=== PATIENT | male | born 1940 | race Caucasian/White ===

== ENCOUNTER → 2020-03-25 | Outpatient (CLI) | payer MEDICARE, MEDICAID ==
[~2020-03-25] MED LIST: AMLO10TA82 PO; ASP325T PO; CEPH500C PO; LIPA1CAP20 PO; LISI40TA PO; OMEG-12 PO; OMEP20TA2 PO; RT-COMBINH IH; VICODIN PO
--- NOTE | 2020-03-25 15:05 | Diagnostic Imaging Report ---
INDICATION: Foot deformities. TIME OF EXAM: 02:39 p.m. EXAMINATION: Multiple views of bilateral feet were obtained. FINDINGS: Metatarsals and phalanges are intact. There is a bunion deformity on the left with first MTP joint degenerative changes. No fractures are seen. Midfoot and hindfoot are unremarkable bilaterally apart from small plantar calcaneal spurs. IMPRESSION: Chronic changes. No acute bony abnormality is detected. Dictated by: Dictated on workstation # [id number]
== END ==
LOC: RAD FS 14:25
PROVIDERS: ATTEND Family Medicine
DX: M21.962 Unspecified acquired deformity of left lower leg (principal)

== ENCOUNTER 2020-11-23 12:24 | Inpatient (IN) | payer MEDICARE, MEDICAID ==
[~2020-11-23] VITALS: Ht 167 cm; Wt 69.2 kg
--- NOTE | 2020-11-23 12:25 | ED General ---
General Stated Complaint: BRADYCARDIA History of Present Illness Date Seen by Provider: Nov 23, 2020 Time Seen by Provider: 12:25 Initial Comments 79-year-old male presents with not feeling good for couple days. Patient just states that "you know somebody not right. EMS was called. Upon arrival EMS reports that his heart rate was in 30s. They did give him some atropine 1 mg that temporarily increased heart rate. Upon arrival his been wearing off and his heart rate is now back in the 30s. Patient is alert orientated just has generalized not feeling well. He denies any cough fever or chills or other systemic complaints. Patient is unsure what his medications are. I review of records from 2014 showed amlodipine and lisinopril. Patient did have the Covid vaccine. No other systemic complaints. Allergies and Home Medications Allergies Coded Allergies: No Known Drug Allergies (Unverified , 12/02/10) Home Medications Amlodipine Besylate 10 Mg Tablet, 2 EACH PO DAILY, (Reported) Aspirin 325 Mg Tab, 325 MG PO DAILY, (Reported) Cephalexin Monohydrate 500 Mg Capsule, 1 CAP PO TID Prescribed by: GISEL TRONCOSO on 09/27/141416 Ipratropium/Albuterol Sulfate 14.7 Gm Aer.w.adap, 2 PUFF IH NEEDED, (Reported) Lipase/Protease/Amylase 1 Each Capsule.dr, 1 EACH PO AC, (Reported) Lisinopril 40 Mg Tablet, 1 EACH PO DAILY, (Reported) [place]-3/Dha/Epa/Fish Oil 1 Each Capsule.dr, 1 EACH PO DAILY, (Reported) Omeprazole 20 Mg Tablet.dr, 20 MG PO DAILY, (Reported) [Vicodin 5/325 MG TAB] TAB, 1-2 TAB PO Q4H PRN for PAIN Prescribed by: GISEL TRONCOSO on 09/27/14 1417 Patient Home Medication List Home Medication List Reviewed: Yes Review of Systems Review of Systems Constitutional: No chills; malaise, weakness EENTM: no symptoms reported Respiratory: no symptoms reported Cardiovascular: no symptoms reported Gastrointestinal: no symptoms reported Musculoskeletal: no symptoms reported Skin: no symptoms reported Psychiatric/Neurological: No Symptoms Reported Hematologic/Lymphatic: No Symptoms Reported Physical Exam Vital Signs Vital Signs - First Documented 11/23/20 12:24 Temp 36.8 Pulse 42 Resp 18 B/P (MAP) 184/54 (97) Pulse Ox 98 O2 Delivery Room Air Capillary Refill : Height, Weight, BMI Height: '" Weight: lbs. oz. kg; BMI Method: General Appearance: No Apparent Distress, WD/WN Respiratory: Chest Non Tender, Lungs Clear Cardiovascular: No Edema, Bradycardia Gastrointestinal: Non Tender, Soft Extremity: Normal Capillary Refill, Normal Inspection, Normal Range of Motion Neurologic/Psychiatric: Alert, Oriented x3, No Motor/Sensory Deficits, Normal Mood/Affect, skirt clipper II-XII Norm as Tested Skin: Normal Color, Warm/Dry Progress/Results/Core Measures Suspected Sepsis SIRS Temperature: Pulse: Respiratory Rate: Laboratory Tests 11/23/20 12:30: White Blood Count 8.5 Blood Pressure / Mean: Laboratory Tests 11/23/20 12:30: Creatinine 1.02, Platelet Count 220, Total Bilirubin 0.5 Results/Orders Lab Results Laboratory Tests Test 11/23/20 12:30 Range/Units White Blood Count 8.5 4.3-11.0 10^3/uL Red Blood Count 4.35 4.35-5.85 10^6/uL Hemoglobin 12.6 L 13.3-17.7 G/DL Hematocrit 40 40-54 % Mean Corpuscular Volume 92 80-99 FL Mean Corpuscular Hemoglobin 29 25-34 PG Mean Corpuscular Hemoglobin Concent 32 32-36 G/DL Red Cell Distribution Width 15.1 H 10.0-14.5 % Platelet Count 220 130-400 10^3/uL Mean Platelet Volume 9.7 7.4-10.4 FL Immature Granulocyte % (Auto) 1 % Neutrophils (%) (Auto) 75 42-75 % Lymphocytes (%) (Auto) 17 12-44 % Monocytes (%) (Auto) 6 0-12 % Eosinophils (%) (Auto) 0 0-10 % Basophils (%) (Auto) 0 0-10 % Neutrophils # (Auto) 6.4 1.8-7.8 X 10^3 Lymphocytes # (Auto) 1.5 1.0-4.0 X 10^3 Monocytes # (Auto) 0.5 0.0-1.0 X 10^3 Eosinophils # (Auto) 0.0 0.0-0.3 10^3/uL Basophils # (Auto) 0.0 0.0-0.1 10^3/uL Immature Granulocyte # (Auto) 0.1 0.0-0.1 10^3/uL Sodium Level 139 135-145 MMOL/L Potassium Level 4.9 3.6-5.0 MMOL/L Chloride Level 106 98-107 MMOL/L Carbon Dioxide Level 21 21-32 MMOL/L Anion Gap 12 5-14 MMOL/L Blood Urea Nitrogen 38 H 7-18 MG/DL Creatinine 1.02 0.60-1.30 MG/DL Estimat Glomerular Filtration Rate > 60 BUN/Creatinine Ratio 37 Glucose Level 102 70-105 MG/DL Calcium Level 8.9 8.5-10.1 MG/DL Corrected Calcium 9.1 8.5-10.1 MG/DL Magnesium Level 1.8 1.6-2.4 MG/DL Total Bilirubin 0.5 0.1-1.0 MG/DL Aspartate Amino Transf (AST/SGOT) 33 5-34 U/L Alanine Aminotransferase (ALT/SGPT) 29 0-55 U/L Alkaline Phosphatase 86 40-136 U/L Troponin I < 0.30 <0.30 NG/ML Total Protein 7.0 6.4-8.2 GM/DL Albumin 3.8 3.2-4.5 GM/DL My Orders Orders - CRAIG,DEEP L DO Cbc With Automated Diff (11/23/20 12:26) Comprehensive Metabolic Panel (11/23/20 12:26) Magnesium (11/23/20 12:26) Protime With Inr (11/23/20 12:26) Partial Thromboplastin Time (11/23/20 12:26) Troponin I Fs (11/23/20 12:26) Accucheck Stat ONCE (11/23/20 12:27) Ed Iv/Invasive Line Start (11/23/20 12:27) Ekg Tracing (11/23/20 12:27) Monitor-Rhythm Ecg Trace Only (11/23/20 12:27) Chest 1 View Ap/Pa Only (11/23/20 12:27) Ns Iv 1000 Ml (Sodium Chloride 0.9%) (11/23/20 12:45) Vital Signs/I&O 11/23/20 12:24 Temp 36.8 Pulse 42 Resp 18 B/P (MAP) 184/54 (97) Pulse Ox 98 O2 Delivery Room Air Capillary Refill : Progress Note : Progress Note Patient with third-degree heart block. We will transfer to [facility] for definitive care. Discussed with Dr. Cristobal and Dr. Sharma. We will give patient some gentle IV hydration. Patient will be transferred to the ICU for observation. Patient was stable but guarded upon transfer ECG Initial ECG Impression Date: Nov 23, 2020 Initial ECG Impression Time: 12:25 Initial ECG Rate: 36 Initial ECG Impression: 3rd Degree AV Block Comment Bradycardia with third-degree AV block. Diagnostic Imaging Diagonstic Imaging: Xray Plain Films/CT/US/NM/MRI: chest Comments Date of Exam:11/23/20 CHEST 1 VIEW AP/PA ONLY INDICATION: Bradycardia. TECHNIQUE: Single view chest 12:31 PM. CORRELATION STUDY: 12/02/2010 FINDINGS: Cardiac enlargement. Probable coronary artery calcification and/or coronary artery stents. Calcification aortic arch. Vasculature slightly prominent. Lung horne demonstrate mildly prominent interstitial markings likely areas of fibrosis particularly in the upper lobes. No consolidating infiltrate. May be trace pleural effusion versus pleural thickening. IMPRESSION: 1. Cardiac enlargement with mild prominent vasculature but without overt failure. 2. Likely chronic change about the lung parenchyma without areas of fibrosis particularly bilateral upper lobes. May be trace pleural effusion versus pleural thickening. Reviewed: Reviewed by Me, Reviewed/Discussed Departure Impression Primary Impression: Third degree atrioventricular block Disposition: 30 STILL A PATIENT Condition: Stable Admissions Decision to Admit Reason: Admit from ER (General) Decision to Admit/Date: Nov 23, 2020 Time/Decision to Admit Time: 12:40 DEEP CRAIG DO Nov 23, 2020 12:25
[2020-11-23 12:39] LABS: HEMATOCRIT 40 % (40-54); HEMOGLOBIN 12.6 G/DL (13.3-17.7); MEAN CORPUSCULAR VOLUME 92 FL (80-99); WHITE BLOOD COUNT 8.5 10^3/uL (4.3-11.0)
[2020-11-23 12:40] LABS: BASOPHILS % (AUTO) 0 % (0-10); EOSINOPHILS % (AUTO) 0 % (0-10); LYMPHOCYTES # (AUTO) 1.5 X 10^3 (1.0-4.0); LYMPHOCYTES % (AUTO) 17 % (12-44); MEAN CORPUSCULAR HEMOGLOBIN 29 PG (25-34); MEAN CORPUSCULAR HGB CONC 32 G/DL (32-36); MEAN PLATELET VOLUME 9.7 FL (7.4-10.4); MONOCYTES # (AUTO) 0.5 X 10^3 (0.0-1.0); MONOCYTES % (AUTO) 6 % (0-12); NEUTROPHILS # (AUTO) 6.4 X 10^3 (1.8-7.8); NEUTROPHILS % (AUTO) 75 % (42-75); PLATELET COUNT 220 10^3/uL (130-400)
[2020-11-23] MEDS ORDERED: NS IV 1000 ML 1,000 ML IV SCH (12:45)
[2020-11-23 12:59] LABS: ALANINE AMINOTRANSFERASE 29 U/L (0-55); ALBUMIN 3.8 GM/DL (3.2-4.5); ALKALINE PHOSPHATASE 86 U/L (40-136); BILIRUBIN,TOTAL 0.5 MG/DL (0.1-1.0); BUN/CREATININE RATIO 37; CALCIUM 8.9 MG/DL (8.5-10.1); CARBON DIOXIDE 21 MMOL/L (21-32); CHLORIDE 106 MMOL/L (98-107); CREATININE SERUM 1.02 MG/DL (0.60-1.30); GFR ESTIMATED > 60; GLUCOSE 102 MG/DL (70-105); MAGNESIUM 1.8 MG/DL (1.6-2.4); POTASSIUM 4.9 MMOL/L (3.6-5.0); SODIUM 139 MMOL/L (135-145)
--- NOTE | 2020-11-23 13:04 | Diagnostic Imaging Report ---
INDICATION: Bradycardia. TECHNIQUE: Single view chest 12:31 PM. CORRELATION STUDY: 12/02/2010 FINDINGS: Cardiac enlargement. Probable coronary artery calcification and/or coronary artery stents. Calcification aortic arch. Vasculature slightly prominent. Lung horne demonstrate mildly prominent interstitial markings likely areas of fibrosis particularly in the upper lobes. No consolidating infiltrate. May be trace pleural effusion versus pleural thickening. IMPRESSION: 1. Cardiac enlargement with mild prominent vasculature but without overt failure. 2. Likely chronic change about the lung parenchyma without areas of fibrosis particularly bilateral upper lobes. May be trace pleural effusion versus pleural thickening. Dictated by: Dictated on workstation # [id number]
[2020-11-23 14:23] LABS: PROTHROMBIN TIME PATIENT 13.9 SEC (12.2-14.7)
--- NOTE | 2020-11-23 14:23 | Tele-ICU Consult ---
History of Present Illness History of Present Illness Date Seen by Provider: Nov 23, 2020 Time Seen by Provider: 14:19 Date of Admission 79 y/o male presents to the ED just not feeling right. EKG shows HR of 30. Given atropine with temporary improvement EKG looks to be 3rd heart block BP 15/69 Labs: wbc: 8.5 hgb: 12.6 K: 4.9 BUN 38 creat: 1.02 IMP 3rd degree heart block Cardiology on consult Allergies and Home Medications Allergies Coded Allergies: No Known Drug Allergies (Unverified , 12/02/10) Home Medications Amlodipine Besylate 10 Mg Tablet, 2 EACH PO DAILY, (Reported) Aspirin 325 Mg Tab, 325 MG PO DAILY, (Reported) Cephalexin Monohydrate 500 Mg Capsule, 1 CAP PO TID Prescribed by: GISEL TRONCOSO on 09/27/141416 Ipratropium/Albuterol Sulfate 14.7 Gm Aer.w.adap, 2 PUFF IH NEEDED, (Reported) Lipase/Protease/Amylase 1 Each Capsule.dr, 1 EACH PO AC, (Reported) Lisinopril 40 Mg Tablet, 1 EACH PO DAILY, (Reported) [place]-3/Dha/Epa/Fish Oil 1 Each Capsule.dr, 1 EACH PO DAILY, (Reported) Omeprazole 20 Mg Tablet.dr, 20 MG PO DAILY, (Reported) [Vicodin 5/325 MG TAB] TAB, 1-2 TAB PO Q4H PRN for PAIN Prescribed by: GISEL TRONCOSO on 09/27/141416 Past Medical/Social/Family Hx Patient Social History Tobacco Use?: Yes Tobacco type used: Cigarettes Smoking Status: Current Someday Smoker Substance use?: No Alcohol Use?: No Pt stated abuse/neglect: No Immunizations Up To Date First/Initial COVID19 Vaccinat: August 2020 Second COVID19 Vaccination Iain: September 2020 Current Status Advance Directives: No Advance Directive Location: Home Primary Language: Romansh Preferred Spoken Language: Romansh Sensory deficits: Hearing impairment Implanted or Applied Medical D: None Review of Systems Constitutional: No no symptoms reported, No see HPI, No chills, No diaphoresis, No dizziness, No fever; malaise; No weakness, No weight gain, No weight loss, No other EENTM: No see HPI, No no symptoms reported, No ear discharge, No hearing loss, No ear pain, No blurred vision, No double vision, No eye pain, No tearing, No vision loss, No dental problems, No hoarseness, No mouth pain, No mouth swelling, No epistaxis, No nose congestion, No nose pain, No throat pain, No throat swelling, No other Respiratory: No no symptoms reported, No see HPI, No cough, No dyspnea on exertion, No hemoptysis, No orthopnea, No phlegm, No short of breath, No stridor, No wheezing, No other Cardiovascular: No no symptoms reported, No see HPI, No chest pain, No edema, No Hx of Intervention, No palpitations, No syncope, No vascular heart diseas, No other Sepsis Event Evaluation Height, Weight, BMI Height: '" Weight: lbs. oz. kg; 20.36 BMI Method: Exam Exam Patient acknowledged, consented, and participated in this virtual visit which was conducted using real time audio/video Vital Signs Date Time Temp Pulse Resp B/P (MAP) Pulse Ox O2 Delivery O2 Flow Rate FiO2 11/23/20 13:57 36.8 30 18 124/93 (103) 94 Room Air 11/23/20 12:24 36.8 42 18 184/54 (97) 98 Room Air Height & Weight Height: '" Weight: lbs. oz. kg; 20.36 BMI Method: General Appearance: No Apparent Distress, WD/WN Respiratory: Chest Non Tender, Lungs Clear Cardiovascular: No Edema, Bradycardia Capillary Refill: Less Than 3 Seconds Extremity: Normal Capillary Refill, Normal Inspection, Normal Range of Motion Neurologic/Psychiatric: Alert, Oriented x3, No Motor/Sensory Deficits, Normal Mood/Affect, shingle grader II-XII Norm as Tested Skin: Normal Color, Warm/Dry Results Lab Laboratory Tests 11/23/20 12:30 Assessment/Plan Assessment/Plan 3rd degree heart block without syncope or hypotension PLAN: admit to ICU cardiology on consult MAGALY ESCOBAR MD Nov 23, 2020 14:23
[2020-11-23] MEDS ORDERED: LOPERAMIDE 2 MG (IMODIUM) TABLET PO PRN (15:00)
[2020-11-23] MEDS ORDERED: CATHETER FLUSH 10 ML SYR IV PRN (15:00)
[2020-11-23] MEDS ORDERED: MELATONIN 3 MG TABLET PO PRN (15:00)
[2020-11-23] MEDS ORDERED: diphenhydrAMINE 25 MG TAB (BENADRYL) PO PRN (15:00)
[2020-11-23] MEDS ORDERED: DOCUSATE SODIUM 100 MG (COLACE) CAP PO PRN (15:00)
[2020-11-23] MEDS ORDERED: CALCIUM CARBONATE 500 MG (TUMS) TAB.CHEW PO PRN (15:00)
[2020-11-23] MEDS ORDERED: ACETAMINOPHEN 500 MG TAB (TYLENOL) PO PRN (15:00)
[2020-11-23] MEDS: NS IV 1000 ML 1,000 ML IV SCH (15:10)
[2020-11-23] MEDS ORDERED: ACETAMINOPHEN 325 MG TABLET PO PRN (15:15)
[2020-11-23] MEDS: HYDROcodone/APAP 5 MG/325 MG (LORTAB) TAB PO PRN ×3 (16:39→23:55)
--- NOTE | 2020-11-23 18:49 | Consultation-Cardiology ---
HPI-Cardiology Cardiology Consultation Date of Consultation 11/23/20 Date of Admission Time Seen by Provider: 18:46 Indication: Symptomatic bradycardia HPI 79 years old gentleman with history of coronary artery disease, reporting history of 3 stents in the past, hypertension, hyperlipidemia and tobaccoism. Has been feeling tired, "not feeling well "for the past 2 weeks. No impr ovement, came into the emergency room for evaluation he was noted to be bradycardic. He denied any syncope, no chest pain, admit having chronic shortness of breath. No palpitation. Home Medications & Allergies Allergies: Coded Allergies: No Known Drug Allergies (Unverified , 12/02/10) Home Medication List Reviewed: Yes Unable to provide list of his medication, his son will contact the hospital with the list [id number] Hx Patient Social History Employed/Student: retired Smoking Status: Current Someday Smoker Have you traveled recently?: No Alcohol Use?: No Past Medical History Discussed below Family Medical History Family Medical Hx Noncontributory Review of Systems-General Review of Systems Constitutional: No no symptoms reported, No see HPI, No chills, No diaphoresis, No dizziness, No fever; malaise, weakness; No weight gain, No weight loss, No other EENTM: No see HPI, No no symptoms reported, No ear discharge, No hearing loss, No ear pain, No blurred vision, No double vision, No eye pain, No tearing, No vision loss, No dental problems, No hoarseness, No mouth pain, No mouth swellin g, No epistaxis, No nose congestion, No nose pain, No throat pain, No throat swelling, No other Respiratory: see HPI; No cough; dyspnea on exertion; No hemoptysis, No orthopnea, No phlegm; short of breath; No stridor, No wheezing, No other Cardiovascular: see HPI; No chest pain, No edema, No Hx of Intervention, No palpitations, No syncope, No vascular heart diseas, No other Gastrointestinal: no symptoms reported, see HPI Genitourinary: see HPI Musculoskeletal: no symptoms reported, see HPI Skin: no symptoms reported, see HPI Psychiatric/Neurological: No Symptoms Reported, See HPI Reviewed Test Results Reviewed Test Results Lab Laboratory Tests Test 11/23/20 12:30 Range/Units White Blood Count 8.5 4.3-11.0 10^3/uL Red Blood Count 4.35 4.35-5.85 10^6/uL Hemoglobin 12.6 L 13.3-17.7 G/DL Hematocrit 40 40-54 % Mean Corpuscular Volume 92 80-99 FL Mean Corpuscular Hemoglobin 29 25-34 PG Mean Corpuscular Hemoglobin Concent 32 32-36 G/DL Red Cell Distribution Width 15.1 H 10.0-14.5 % Platelet Count 220 130-400 10^3/uL Mean Platelet Volume 9.7 7.4-10.4 FL Immature Granulocyte % (Auto) 1 % Neutrophils (%) (Auto) 75 42-75 % Lymphocytes (%) (Auto) 17 12-44 % Monocytes (%) (Auto) 6 0-12 % Eosinophils (%) (Auto) 0 0-10 % Basophils (%) (Auto) 0 0-10 % Neutrophils # (Auto) 6.4 1.8-7.8 X 10^3 Lymphocytes # (Auto) 1.5 1.0-4.0 X 10^3 Monocytes # (Auto) 0.5 0.0-1.0 X 10^3 Eosinophils # (Auto) 0.0 0.0-0.3 10^3/uL Basophils # (Auto) 0.0 0.0-0.1 10^3/uL Immature Granulocyte # (Auto) 0.1 0.0-0.1 10^3/uL Prothrombin Time 13.9 12.2-14.7 SEC INR Comment 1.0 0.8-1.4 Activated Partial Thromboplast Time 35 24-35 SEC Sodium Level 139 135-145 MMOL/L Potassium Level 4.9 3.6-5.0 MMOL/L Chloride Level 106 98-107 MMOL/L Carbon Dioxide Level 21 21-32 MMOL/L Anion Gap 12 5-14 MMOL/L Blood Urea Nitrogen 38 H 7-18 MG/DL Creatinine 1.02 0.60-1.30 MG/DL Estimat Glomerular Filtration Rate > 60 BUN/Creatinine Ratio 37 Glucose Level 102 70-105 MG/DL Calcium Level 8.9 8.5-10.1 MG/DL Corrected Calcium 9.1 8.5-10.1 MG/DL Magnesium Level 1.8 1.6-2.4 MG/DL Total Bilirubin 0.5 0.1-1.0 MG/DL Aspartate Amino Transf (AST/SGOT) 33 5-34 U/L Alanine Aminotransferase (ALT/SGPT) 29 0-55 U/L Alkaline Phosphatase 86 40-136 U/L Troponin I < 0.30 <0.30 NG/ML Total Protein 7.0 6.4-8.2 GM/DL Albumin 3.8 3.2-4.5 GM/DL Physical Exam Physical Exam Vital Signs Vital Signs - First Documented 11/23/20 12:24 Temp 36.8 Pulse 42 Resp 18 B/P (MAP) 184/54 (97) Pulse Ox 98 O2 Delivery Room Air Capillary Refill : Less Than 3 Seconds Height, Weight, BMI Height: '" Weight: lbs. oz. kg; 20.36 BMI Method: General Appearance: No Apparent Distress, WD/WN Eyes: Bilateral Eye Normal Inspection, Bilateral Eye PERRL, Bilateral Eye EOMI HEENT: PERRL/EOMI, TMs Normal, Normal ENT Inspection, Pharynx Normal, Moist Mucous Membranes Neck: Full Range of Motion, Normal Inspection, Non Tender, Supple, Carotid Bruit Respiratory: Chest Non Tender, Lungs Clear Cardiovascular: No Edema, Bradycardia, Systolic Murmur Gastrointestinal: Non Tender, Soft Back: Normal Inspection, No CVA Tenderness, No Vertebral Tenderness Extremity: Normal Capillary Refill, Normal Inspection, Normal Range of Motion Neurologic/Psychiatric: Alert, Oriented x3, No Motor/Sensory Deficits, Normal Mood/Affect, internet programmer II-XII Norm as Tested Skin: Normal Color, Warm/Dry Lymphatic: No Adenopathy A/P-Cardiology Admission Diagnosis Complete heart block Coronary artery disease Hypertension Hyperlipidemia Assessment/Plan Complete heart block, severe bradycardia, currently hypotensive, complaining of fatigue. Not sure about his medication, we will obtain copy of his list, keep him without medication on IV fluid today and monitor overnight. If his heart rate did not improve, will consider dual-chamber pacemaker. Appears to be responsive to atropine doses. Hypertension, currently severely hypertensive. Continue to monitor no changes recommended Coronary artery disease, reporting history of heart attack about 5 years ago with 3 stents. 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
[2020-11-23] MEDS: SENNA W/DOCUSATE (SENOKOT S) TABLET PO SCH (20:15)
[2020-11-24] MEDS: NS IV 1000 ML 1,000 ML IV SCH ×2 (02:23→17:17)
[2020-11-24 04:14] LABS: BASOPHILS % (AUTO) 0 % (0-10); EOSINOPHILS # (AUTO) 0.1 10^3/uL (0.0-0.3); EOSINOPHILS % (AUTO) 1 % (0-10); HEMATOCRIT 39 % (40-54); HEMOGLOBIN 12.5 g/dL (13.3-17.7); LYMPHOCYTES # (AUTO) 2.2 10^3/uL (1.0-4.0); LYMPHOCYTES % (AUTO) 22 % (12-44); MEAN CORPUSCULAR HEMOGLOBIN 29 pg (25-34); MEAN CORPUSCULAR HGB CONC 32 g/dL (32-36); MEAN CORPUSCULAR VOLUME 91 fL (80-99); MEAN PLATELET VOLUME 10.5 fL (9.0-12.2); MONOCYTES # (AUTO) 0.8 10^3/uL (0.0-1.0); MONOCYTES % (AUTO) 8 % (0-12); NEUTROPHILS # (AUTO) 6.8 10^3/uL (1.8-7.8); NEUTROPHILS % (AUTO) 69 % (42-75); PLATELET COUNT 195 10^3/uL (130-400)
[2020-11-24] MEDS: HYDROcodone/APAP 5 MG/325 MG (LORTAB) TAB PO PRN (05:02)
[2020-11-24 05:18] LABS: SMEAR SCAN COMMENT YES
[2020-11-24 07:22] LABS: CHLORIDE 110 MMOL/L (98-107); POTASSIUM 4.2 MMOL/L (3.6-5.0); SODIUM 143 MMOL/L (135-145)
[2020-11-24 07:23] LABS: ALBUMIN 3.6 GM/DL (3.2-4.5)
[2020-11-24 07:24] LABS: CALCIUM 8.7 MG/DL (8.5-10.1); TRIGLYCERIDES 95 MG/DL (<150); VLDL CHOLESTEROL 19 MG/DL (5-40)
[2020-11-24 07:25] LABS: GLUCOSE 116 MG/DL (70-105); TOTAL PROTEIN 6.6 GM/DL (6.4-8.2)
[2020-11-24 07:26] LABS: CARBON DIOXIDE 21 MMOL/L (21-32)
[2020-11-24 07:27] LABS: BILIRUBIN,TOTAL 0.8 MG/DL (0.1-1.0)
[2020-11-24 07:28] LABS: PHOSPHORUS 3.3 MG/DL (2.3-4.7)
[2020-11-24 07:29] LABS: ALKALINE PHOSPHATASE 87 U/L (40-136); CHOLESTEROL 135 MG/DL (< 200); GFR ESTIMATED > 60
[2020-11-24 07:30] LABS: BUN/CREATININE RATIO 23
[2020-11-24 07:31] LABS: HDL CHOLESTEROL 36 MG/DL (40-60)
[2020-11-24 07:32] LABS: ALANINE AMINOTRANSFERASE 37 U/L (0-55); MAGNESIUM 1.8 MG/DL (1.6-2.4)
[2020-11-24] MEDS: SENNA W/DOCUSATE (SENOKOT S) TABLET PO SCH ×2 (08:24→21:09)
--- NOTE | 2020-11-24 08:43 | Tele-ICU Progress Note ---
Subjective Date Seen by a Provider: Nov 24, 2020 Time Seen by a Provider: 08:43 Sepsis Event Evaluation Height, Weight, BMI Height: '" Weight: lbs. oz. kg; 20.36 BMI Method: Exam Exam Patient acknowledged, consented, and participated in this virtual visit which was conducted using real time audio/video Vital Signs Date Time Temp Pulse Resp B/P (MAP) Pulse Ox O2 Delivery O2 Flow Rate FiO2 11/24/20 08:00 32 22 154/66 (91) 89 Room Air 11/24/20 07:44 91 Room Air 11/24/20 07:43 94 Nasal Cannula 2.00 11/24/20 07:30 37.2 11/24/20 07:00 32 11/24/20 07:00 32 24 166/70 (100) 92 Nasal Cannula 2.00 11/24/20 06:30 33 26 182/58 (96) 92 Nasal Cannula 2.00 11/24/20 06:00 22 31 140/102 (104) 91 Nasal Cannula 2.00 11/24/20 05:30 33 28 166/70 (84) 92 Nasal Cannula 2.00 11/24/20 05:00 33 39 192/94 (126) 93 Nasal Cannula 2.00 11/24/20 04:55 36.7 90 Nasal Cannula 2.00 11/24/20 04:00 2.00 11/24/20 04:00 34 179/65 (94) 89 Nasal Cannula 2.00 11/24/20 04:00 90 Nasal Cannula 2.00 11/24/20 03:00 33 23 165/64 (92) 91 Nasal Cannula 2.00 11/24/20 02:00 33 178/77 (113) 92 Nasal Cannula 2.00 11/24/20 01:00 34 11/24/20 01:00 34 31 178/68 (98) 92 Nasal Cannula 2.00 11/24/20 00:00 35 26 197/69 (111) 95 Nasal Cannula 2.00 11/23/20 23:55 89 Nasal Cannula 2.00 11/23/20 23:55 37.0 89 Nasal Cannula 2.00 11/23/20 23:00 34 22 171/64 (99) 91 Room Air 11/23/20 22:17 35 26 176/80 (112) 92 Room Air 11/23/20 21:00 37 26 179/75 (109) 93 Room Air 11/23/20 20:15 37 33 166/56 (92) 92 Room Air 11/23/20 19:45 91 Room Air 11/23/20 19:00 38 11/23/20 19:00 38 167/76 (106) 92 Room Air 11/23/20 19:00 36.9 38 20 167/76 (106) 90 Room Air 11/23/20 18:00 69 183/81 (115) 91 Room Air 11/23/20 17:00 26 36 192/75 (114) 89 Room Air 11/23/20 16:00 91 Room Air 11/23/20 16:00 32 31 196/180 (185) 94 Room Air 11/23/20 16:00 37.0 11/23/20 15:00 31 31 160/70 (100) 93 Room Air 11/23/20 14:47 32 11/23/20 14:15 94 Room Air 11/23/20 13:57 36.8 30 18 124/93 (103) 94 Room Air Manual Cuff/Auscultation 11/23/20 13:09 36.8 36 18 148/51 (97) 98 11/23/20 12:24 36.8 42 18 184/54 (97) 98 Room Air I & O 11/24/20 07:00 Intake Total 1645 ml Output Total 1650 ml Balance -5 ml Height & Weight Height: '" Weight: lbs. oz. kg; 20.36 BMI Method: General Appearance: No Apparent Distress, WD/WN HEENT: PERRL/EOMI, TMs Normal, Normal ENT Inspection, Pharynx Normal, Moist Mucous Membranes Neck: Full Range of Motion, Normal Inspection, Non Tender, Supple, Carotid Bruit Respiratory: Chest Non Tender, Lungs Clear Cardiovascular: No Edema, Bradycardia, Systolic Murmur Capillary Refill: Less Than 3 Seconds Extremity: Normal Capillary Refill, Normal Inspection, Normal Range of Motion Neurologic/Psychiatric: Alert, Oriented x3, No Motor/Sensory Deficits, Normal Mood/Affect, vise hand II-XII Norm as Tested Skin: Normal Color, Warm/Dry Lymphatic: No Adenopathy Results Lab Laboratory Tests 11/23/20 12:30 11/24/20 03:46 11/24/20 06:52 Assessment/Plan Assessment/Plan Available chart/ vitals / labs / Images reviewed Video assessment done using teleICU camera, rest of exam as per RN Discussed with RN Events overnight : Afebrile hemodynamically stable, no pressors, I/O = [id number] Drips: ns As per RN exam : KJ arambula Consultants: sagar Hospital course: [birth year]79 y/o male presents to the ED just not feeling right. EKG shows HR of 30. Given atropine with temporary improvement A/P Complete heart block, severe bradycardia - ECHO today - off pressors today - planned pacemaker today Mild hypoxia - 2 L - re-eval latter Lines : Analgesia: tylenol Anxiety/ delirium AAO VTE Prophylaxis: SCD Stress Ulcer Prophylaxis: NA Glycemic Control: na Plans in collaboration with bedside consultants and IM MDs. Discussed with RN to reach out if any questions or concerns A total of 20 minutes of critical care time was devoted to this patient today, required to treat and/or prevent further deterioration of critical care condition ( as above ) . IFTIKHAR BERGERON MD Nov 24, 2020 08:43
--- NOTE | 2020-11-24 08:49 | History & Physical ---
HUGO NEGRON MED STUDENT 11/24/20 0849: HPI History of Present Illness: cc: bradycardia, generalized not feeling well HPI: This is Boby, an 79 yo M, who presents with a general sense of not feeling well. EMS was called for him and he was brought to the ED. During EMS ride, he was found to be bradycardic and required atropine dosing, which helped initially. Pt states that he has not been feeling well now for 4-5 days. Denies any trauma or vigorous activity when this all started. States that he was having the "dry heaves" and then started vomiting after that, during this 4-5 day period. Pt was unable to provide any other description besides "just not feeling right." Positive for dizziness and R shoulder pain. Denies chest pain, palpitations, SOB, cough. Source: patient Exam Limitations: no limitations Date seen by provider: Nov 24, 2020 Attending Physician Shannen Marie MD PCP Vito Adams MD Consult Date of Admission Nov 23, 2020 at 12:40 Home Medications Home Medications Reviewed patient Home Medication Reconciliation performed by pharmacy medication reconciliations photovoltaic installation technician and/or nursing. Patients Allergies have been reviewed. Allergies Coded Allergies: No Known Drug Allergies (Unverified , 12/02/10) PBG-Vxntns-Fihdva Hx Patient Social History Employed/Student: retired Smoking Status: Current Everyday Smoker Recent Hopitalizations: No Alcohol Use?: No Tobacco type used: Cigarettes Have you traveled recently?: No Past Medical History hypertension, hyperlipidemia, coronary artery disease, everyday smoker. Family Medical History Significant Family History: Cancer (unable to specify) Review of Systems ([facility]) Constitutional: No chills, No diaphoresis; dizziness; No weakness Respiratory: No cough, No short of breath Cardiovascular: No chest pain, No palpitations Gastrointestinal: No abdominal pain, No constipation, No diarrhea, No nausea, No vomiting Psychiatric/Neurological: No Symptoms Reported Physical Exam-([facility]) Physical Exam Vital Signs VS - Last 72 Hours, by Label 11/23/20 11/23/20 11/23/20 11/23/20 12:24 13:09 13:57 14:15 Temp 36.8 36.8 36.8 Pulse 42 36 30 Resp 18 18 18 B/P (MAP) 184/54 (97) 148/51 (97) 124/93 (103) Manual Cuff/Auscultation Pulse Ox 98 98 94 94 O2 Delivery Room Air Room Air Room Air 11/23/20 11/23/20 11/23/20 11/23/20 14:47 15:00 16:00 16:00 Temp 37.0 Pulse 32 31 32 Resp 31 31 B/P (MAP) 160/70 (100) 196/180 (185) Pulse Ox 93 94 O2 Delivery Room Air Room Air 11/23/20 11/23/20 11/23/20 11/23/20 16:00 17:00 18:00 19:00 Temp 36.9 Pulse 26 69 38 Resp 36 20 B/P (MAP) 192/75 (114) 183/81 (115) 167/76 (106) Pulse Ox 91 89 91 90 O2 Delivery Room Air Room Air Room Air Room Air 11/23/20 11/23/20 11/23/20 11/23/20 19:00 19:00 19:45 20:15 Pulse 38 38 37 Resp 33 B/P (MAP) 167/76 (106) 166/56 (92) Pulse Ox 92 91 92 O2 Delivery Room Air Room Air Room Air 11/23/20 11/23/20 11/23/20 11/23/20 21:00 22:17 23:00 23:55 Temp 37.0 Pulse 37 35 34 Resp 26 26 22 B/P (MAP) 179/75 (109) 176/80 (112) 171/64 (99) Pulse Ox 93 92 91 89 O2 Delivery Room Air Room Air Room Air Nasal Cannula O2 Flow Rate 2.00 11/23/20 11/24/20 11/24/20 11/24/20 23:55 00:00 01:00 01:00 Pulse 35 34 34 Resp 26 31 B/P (MAP) 197/69 (111) 178/68 (98) Pulse Ox 89 95 92 O2 Delivery Nasal Cannula Nasal Cannula Nasal Cannula O2 Flow Rate 2.00 2.00 2.00 11/24/20 11/24/20 11/24/20 11/24/20 02:00 03:00 04:00 04:00 Pulse 33 33 34 Resp 23 B/P (MAP) 178/77 (113) 165/64 (92) 179/65 (94) Pulse Ox 92 91 90 89 O2 Delivery Nasal Cannula Nasal Cannula Nasal Cannula Nasal Cannula O2 Flow Rate 2.00 2.00 2.00 2.00 11/24/20 11/24/20 11/24/20 11/24/20 04:00 04:55 05:00 05:30 Temp 36.7 Pulse 33 33 Resp 39 28 B/P (MAP) 192/94 (126) 166/70 (84) Pulse Ox 90 93 92 O2 Delivery Nasal Cannula Nasal Cannula Nasal Cannula O2 Flow Rate 2.00 2.00 2.00 2.00 11/24/20 11/24/20 11/24/20 11/24/20 06:00 06:30 07:00 07:00 Pulse 22 33 32 32 Resp 31 26 24 B/P (MAP) 140/102 (104) 182/58 (96) 166/70 (100) Pulse Ox 91 92 92 O2 Delivery Nasal Cannula Nasal Cannula Nasal Cannula O2 Flow Rate 2.00 2.00 2.00 11/24/20 11/24/20 11/24/20 11/24/20 07:30 07:43 07:44 08:00 Temp 37.2 Pulse 32 Resp 22 B/P (MAP) 154/66 (91) Pulse Ox 94 91 89 O2 Delivery Nasal Cannula Room Air Room Air O2 Flow Rate 2.00 11/24/20 09:00 Pulse 33 Resp 17 B/P (MAP) 180/74 (109) Pulse Ox 91 O2 Delivery Room Air Capillary Refill : Less Than 3 Seconds General Appearance: mild distress, thin HEENT: No scleral icterus (R), No scleral icterus (L) Neck: non-tender; No lymphadenopathy (R), No lymphadenopathy (L) Respiratory: chest non-tender, normal breath sounds, no accessory muscle use, wheezing (scattered wheezing throughout) Cardiovascular: regular rate, rhythm, bradycardia Peripheral Pulses: 1+ Dorsalis Pedis (R), 1+ Left Dors-Pedis (L), 1+ Radial Pulses (R), 1+ Radial Pulses (L) Gastrointestinal: normal bowel sounds, non tender Extremities: non-tender, no pedal edema Neurologic/Psychiatric: alert, oriented x 3 Skin: normal color, warm/dry Lymphatic: no adenopathy Assessment/Plan Assessment/Plan Admission Dx Bradycardia (1) Third degree atrioventricular block Status: Acute Assessment & Plan: 11/24/20 Appreciate Cardiology consult Procedure for insertion of dual-chamber pacemaker scheduled for this AM. (2) Hypertension Status: Chronic Assessment & Plan: Reconcile meds and continue home medications. (3) Hyperlipidemia Status: Chronic Assessment & Plan: Reconcile medications and continue home medications (4) Previous myocardial infarction older than 8 weeks Status: Chronic Assessment & Plan: Myocardial Infarction approximately 5 years ago. 3 stents were placed at that time. SHANNEN MARIE MD 11/24/20 1128: HPI History of Present Illness: Called overhead for code blue this AM. At bedside during length of code. See nursing documentation for code events. ER physician also at bedside. Patient received 4 rounds of Epi, Amiodarone bolus and started on drip, Lidocaine 75 given, Bicarb given, Shocks x2, Dr Sharma to bed pulse maintained and patient urgently taken to cath lab radiology technician for pacer placement. Exam Limitations: clinical condition Time Seen by Provider: 09:05 Home Medications Allergies Coded Allergies: No Known Drug Allergies (Unverified , 12/02/10) KKB-Ppvxyx-Hrgdoq Hx Patient Social History Smoking Status: Current Everyday Smoker Past Medical History CAD HTN Review of Systems ([facility]) Other Unable to get ROS due to Code Reviewed Test Results Reviewed Test Results Lab Laboratory Tests Test 11/24/20 03:46 11/24/20 06:52 11/24/20 12:21 Range/Units White Blood Count 10.0 4.3-11.0 10^3/uL Red Blood Count 4.25 L 4.30-5.52 10^6/uL Hemoglobin 12.5 L 13.3-17.7 g/dL Hematocrit 39 L 40-54 % Mean Corpuscular Volume 91 80-99 fL Mean Corpuscular Hemoglobin 29 25-34 pg Mean Corpuscular Hemoglobin Concent 32 32-36 g/dL Red Cell Distribution Width 15.0 H 10.0-14.5 % Platelet Count 195 130-400 10^3/uL Mean Platelet Volume 10.5 9.0-12.2 fL Immature Granulocyte % (Auto) 1 % Neutrophils (%) (Auto) 69 42-75 % Lymphocytes (%) (Auto) 22 12-44 % Monocytes (%) (Auto) 8 0-12 % Eosinophils (%) (Auto) 1 0-10 % Basophils (%) (Auto) 0 0-10 % Neutrophils # (Auto) 6.8 1.8-7.8 10^3/uL Lymphocytes # (Auto) 2.2 1.0-4.0 10^3/uL Monocytes # (Auto) 0.8 0.0-1.0 10^3/uL Eosinophils # (Auto) 0.1 0.0-0.3 10^3/uL Basophils # (Auto) 0.0 0.0-0.1 10^3/uL Immature Granulocyte # (Auto) 0.1 0.0-0.1 10^3/uL Percent Immature Platelet Fraction 3.7 0.0-7.6 % Smear Scan YES Sodium Level 143 135-145 MMOL/L Potassium Level 4.2 3.6-5.0 MMOL/L Chloride Level 110 H 98-107 MMOL/L Carbon Dioxide Level 21 21-32 MMOL/L Anion Gap 12 5-14 MMOL/L Blood Urea Nitrogen 25 H 7-18 MG/DL Creatinine 1.10 0.60-1.30 MG/DL Estimat Glomerular Filtration Rate > 60 BUN/Creatinine Ratio 23 Glucose Level 116 H 70-105 MG/DL Calcium Level 8.7 8.5-10.1 MG/DL Corrected Calcium 9.0 8.5-10.1 MG/DL Phosphorus Level 3.3 2.3-4.7 MG/DL Magnesium Level 1.8 1.6-2.4 MG/DL Total Bilirubin 0.8 0.1-1.0 MG/DL Aspartate Amino Transf (AST/SGOT) 27 5-34 U/L Alanine Aminotransferase (ALT/SGPT) 37 0-55 U/L Alkaline Phosphatase 87 40-136 U/L Troponin I 0.165 H <0.028 NG/ML Total Protein 6.6 6.4-8.2 GM/DL Albumin 3.6 3.2-4.5 GM/DL Triglycerides Level 95 <150 MG/DL Cholesterol Level 135 < 200 MG/DL LDL Cholesterol Direct 80 1-129 MG/DL VLDL Cholesterol 19 5-40 MG/DL HDL Cholesterol 36 L 40-60 MG/DL Thyroid Stimulating Hormone (TSH) 3.65 0.35-4.94 UIU/ML Blood Gas Puncture Site RGHT RAD Blood Gas Patient Temperature 37.6 Arterial Blood pH 7.21 *L 7.37-7.43 Arterial Blood Partial Pressure CO2 38 35-45 MMHG Arterial Blood Partial Pressure O2 108 H 79-93 MMHG Arterial Blood HCO3 15 *L 23-27 MMOL/L Arterial Blood Total CO2 15.6 L 21.0-31.0 MMOL/L Arterial Blood Oxygen Saturation 96 94-100 % Arterial Blood Base Excess -11.8 L -2.5-2.5 MMOL/L Gianluca Test POS Blood Gas Ventilator Setting YES Blood Gas Inspired Oxygen 100% Physical Exam-([facility]) Physical Exam General Appearance: thin, other (Patient intubated during code blue) Cardiovascular: bradycardia Gastrointestinal: soft Assessment/Plan Assessment/Plan Admission Status: Inpatient Order (span 2 midnights) Reason for Inpatient Admission: critical care (1) Cardiac arrest Status: Acute Assessment & Plan: 11/24: Myself and Dr Figueroa present for Code Blue, See nursing notes for code timeline, Patient taken to cath lab radiology technician for emergent pacemaker placement, Hypothermia protocol upon return to ICU, Spoke with eICU and agree on plan (2) Third degree atrioventricular block Status: Acute Assessment & Plan: 11/24: Dr Sharma placed pace maker (3) Previous myocardial infarction older than 8 weeks Status: Chronic (4) Hyperlipidemia Status: Chronic (5) Hypertension Status: Chronic [employer] NE[employer]ON MED STUDENT Nov 24, 2020 08:49 SHANNEN MARIE MD Nov 24, 2020 11:28
[2020-11-24] MEDS ORDERED: fentaNYL INJ 100 MCG/2 ML AMP ONE (09:16)
[2020-11-24] MEDS ORDERED: ceFAZolin INJECTION 1,000 MG ONE (09:17)
[2020-11-24] MEDS ORDERED: LIDOCAINE 1% INJ 20 ML 20 ML VIAL ONE (09:17)
[2020-11-24] MEDS ORDERED: HEParin (CATH LAB) 1,000 ML IV ONE (09:17)
[2020-11-24] MEDS ORDERED: MIDAZOLAM 5 MG/5 ML (VERSED) VIAL ONE (09:17)
[2020-11-24] MEDS ORDERED: NS IV 1000 ML 1,000 ML ONE ×2 (09:17→11:50)
--- NOTE | 2020-11-24 09:56 | ED CPR ---
HPI-CPR General Chief Complaint: Cardiac/General Problems Stated Complaint: BRADYCARDIA Nursing Triage Note: Patient presents to the ED via EMS with c/o of "not feeling well". EMS reports that patient stated he just hasn't felt well for a couple of days. Upon arrival patient heart rate in the 30s with possible 3rd degree heart block. EMS administered 1mg atropine in route and heart rate reportedly increased into the 90s for 2-3 minutes then returned to the 30s. Upon arrival patient is alert and oriented. Sepsis Screen: No Definite Risk Source of Information: Other (staff) Exam Limitations: Physical Impairments History of Present Illness Date Seen by Provider: Nov 24, 2020 Time Seen by Provider: 09:18 Initial Comments I presented to patient's room in response to CODE BLUE. Patient was admitted for complete heart block with anticipated pacemaker placement. He had a bradycardic episode resulting in cardiac arrest. Allergies and Home Medications Allergies Coded Allergies: No Known Drug Allergies (Unverified , 12/02/10) Home Medications Amlodipine Besylate 10 Mg Tablet, 2 EACH PO DAILY, (Reported) Aspirin 325 Mg Tab, 325 MG PO DAILY, (Reported) Cephalexin Monohydrate 500 Mg Capsule, 1 CAP PO TID Prescribed by: GISEL TRONCOSO on 09/27/14 141 Ipratropium/Albuterol Sulfate 14.7 Gm Aer.w.adap, 2 PUFF IH NEEDED, (Reported) Lipase/Protease/Amylase 1 Each Capsule.dr, 1 EACH PO AC, (Reported) Lisinopril 40 Mg Tablet, 1 EACH PO DAILY, (Reported) Trona-3/Dha/Epa/Fish Oil 1 Each Capsule.dr, 1 EACH PO DAILY, (Reported) Omeprazole 20 Mg Tablet.dr, 20 MG PO DAILY, (Reported) [Vicodin 5/325 MG TAB] TAB, 1-2 TAB PO Q4H PRN for PAIN Prescribed by: GISEL TRONCOSO on 09/27/14 1417 Patient Home Medication List Home Medication List Reviewed: Yes Review of Systems Review of Systems Constitutional: see HPI EENTM: No Symptoms Reported Respiratory: See HPI Cardiovascular: See HPI Gastrointestinal: No Symptoms Reported Genitourinary: No Symptoms Reported Musculoskeletal: no symptoms reported Skin: no symptoms reported Psychiatric/Neurological: No Symptoms Reported Endocrine: No Symptoms Reported Hematologic/Lymphatic: No Symptoms Reported Past Nmnhmym-Hvufzd-Ekkvac Hx Patient Social History Tobacco Use?: Yes Tobacco type used: Cigarettes Smoking Status: Current Everyday Smoker Substance use?: No Alcohol Use?: No Pt feels they are or have been: No Immunizations Up To Date First/Initial COVID19 Vaccinat: August 2020 Second COVID19 Vaccination Iain: September 2020 Past Medical History Reproductive Disorders: No Family Medical History Cancer (unable to specify) Physical Exam Vital Signs Vital Signs - First Documented 11/23/20 12:24 Temp 36.8 Pulse 42 Resp 18 B/P (MAP) 184/54 (97) Pulse Ox 98 O2 Delivery Room Air Capillary Refill : Less Than 3 Seconds Height, Weight, BMI Height: '" Weight: lbs. oz. kg; 20.36 BMI Method: General Appearance: Other (Minimally responsive with agonal breathing) Respiratory: Other (Dental breathing, later intubated) Cardiovascular: Other (Myriad of heart rhythms) Gastrointestinal: No Distended Neurologic/Psychiatric: Other (Unresponsive) Progress/Results/Core Measures Results/Orders Lab Results Laboratory Tests Test 11/23/20 12:30 Range/Units White Blood Count 8.5 4.3-11.0 10^3/uL Red Blood Count 4.35 4.35-5.85 10^6/uL Hemoglobin 12.6 L 13.3-17.7 G/DL Hematocrit 40 40-54 % Mean Corpuscular Volume 92 80-99 FL Mean Corpuscular Hemoglobin 29 25-34 PG Mean Corpuscular Hemoglobin Concent 32 32-36 G/DL Red Cell Distribution Width 15.1 H 10.0-14.5 % Platelet Count 220 130-400 10^3/uL Mean Platelet Volume 9.7 7.4-10.4 FL Immature Granulocyte % (Auto) 1 % Neutrophils (%) (Auto) 75 42-75 % Lymphocytes (%) (Auto) 17 12-44 % Monocytes (%) (Auto) 6 0-12 % Eosinophils (%) (Auto) 0 0-10 % Basophils (%) (Auto) 0 0-10 % Neutrophils # (Auto) 6.4 1.8-7.8 X 10^3 Lymphocytes # (Auto) 1.5 1.0-4.0 X 10^3 Monocytes # (Auto) 0.5 0.0-1.0 X 10^3 Eosinophils # (Auto) 0.0 0.0-0.3 10^3/uL Basophils # (Auto) 0.0 0.0-0.1 10^3/uL Immature Granulocyte # (Auto) 0.1 0.0-0.1 10^3/uL Prothrombin Time 13.9 12.2-14.7 SEC INR Comment 1.0 0.8-1.4 Activated Partial Thromboplast Time 35 24-35 SEC Sodium Level 139 135-145 MMOL/L Potassium Level 4.9 3.6-5.0 MMOL/L Chloride Level 106 98-107 MMOL/L Carbon Dioxide Level 21 21-32 MMOL/L Anion Gap 12 5-14 MMOL/L Blood Urea Nitrogen 38 H 7-18 MG/DL Creatinine 1.02 0.60-1.30 MG/DL Estimat Glomerular Filtration Rate > 60 BUN/Creatinine Ratio 37 Glucose Level 102 70-105 MG/DL Calcium Level 8.9 8.5-10.1 MG/DL Corrected Calcium 9.1 8.5-10.1 MG/DL Magnesium Level 1.8 1.6-2.4 MG/DL Total Bilirubin 0.5 0.1-1.0 MG/DL Aspartate Amino Transf (AST/SGOT) 33 5-34 U/L Alanine Aminotransferase (ALT/SGPT) 29 0-55 U/L Alkaline Phosphatase 86 40-136 U/L Troponin I < 0.30 <0.30 NG/ML Total Protein 7.0 6.4-8.2 GM/DL Albumin 3.8 3.2-4.5 GM/DL Vital Signs/I&O 11/23/20 12:24 Temp 36.8 Pulse 42 Resp 18 B/P (MAP) 184/54 (97) Pulse Ox 98 O2 Delivery Room Air Blood Pressure Mean: 109 Critical Care Note Critical Care Start Time: 09:18 Stop Time: 09:42 Total Time (minutes) 24 Departure Impression Primary Impression: Third degree atrioventricular block Additional Impressions: Cardiac arrest Ventricular fibrillation Disposition: 30 STILL A PATIENT Condition: Stable Admissions Decision to Admit Reason: Admit from ER (General) Decision to Admit/Date: Nov 23, 2020 Time/Decision to Admit Time: 12:40 Departure-Patient Inst. Referrals: SELF,JARED GARCÍA (PCP) Primary Care Physician ATIF BROWNE MD Nov 24, 2020 09:56
--- NOTE | 2020-11-24 10:14 | Physical Therapy Progress Note ---
Therapy Progress Note Patient s/p Code Blue and sedated/intubated. PT will continue to monitor patient status. ABIGAIL CASTILLO PT Nov 24, 2020 10:14
[2020-11-24] MEDS ORDERED: meTOprolol 5 MG/5 ML (LOPRESSOR) VIAL ONE (10:34)
--- NOTE | 2020-11-24 10:36 | Occ Therapy Progress Note ---
Therapy Progress Note Pt s/p Code Blue and is currently sedated/intubated. OT orders received, and OT will monitor pt and initiate tx when pt is more medically stable and able to actively participate in skilled therapy. THUAN GE OT Nov 24, 2020 10:36
[2020-11-24] MEDS ORDERED: NEO/POLY/BAC (NEOSPORIN) OINT 15 GM TUBE ONE (11:09)
--- NOTE | 2020-11-24 11:29 | Cardiology Progress Note ---
Subjective Date Seen by Provider: Nov 24, 2020 Time Seen by Provider: 09:30 Subjective/Events-last exam Patient is sedated and intubated Review of Systems General: Other (Unable to provide review of system) Objective-Cardiology Exam Last Set of Vital Signs Vital Signs 11/24/20 11/24/20 11/24/20 07:30 07:43 09:00 Temp 37.2 Pulse 33 Resp 17 B/P (MAP) 180/74 (109) Pulse Ox 91 O2 Delivery Room Air O2 Flow Rate 2.00 I&O Intake and Output 11/24/20 00:00 Intake Total 520 ml Output Total 700 ml Balance -180 ml Intake Oral 520 ml Output Urine Total 700 ml # Voids 1 Daily Weight Change No General: Other (Sedated and intubated) HEENT: Atraumatic, PERRLA Neck: Supple Lungs: Clear to Auscultation Heart: Regular Rate, Normal S1, Normal S2 Abdomen: Normal Bowel Sounds Extremities: No Clubbing Skin: No Rashes Neuro: Other (Sedated and intubated) Psych/Mental Status: Other (Sedated and intubated) Results Lab Laboratory Tests 11/23/20 12:30 11/24/20 03:46 11/24/20 06:52 A/P-Cardiology Admission Diagnosis Acute respiratory failure Complete heart block Coronary artery disease Hypertension Hyperlipidemia Assessment/Plan Status post CODE BLUE, patient had ventricular tachycardia and fibrillation, required chest compressions and multiple shocks, given epinephrine, restored his baseline rhythm which is sinus rhythm with complete heart block. 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 Hypertension, starting IV Lopressor and monitor tolerance and response Coronary artery disease, reporting history of heart attack about 5 years ago with 3 stents. No recent myocardial infarction, mild elevation in troponin, type II myocardial infarction probably secondary to severe bradycardia Hyperlipidemia, evaluate lipid profile TANVIR SARMIENTO MD Nov 24, 2020 11:29
--- NOTE | 2020-11-24 11:30 | Conscious Sedation/ASA ---
Conscious Sedation Pre-Proced Time 11:30 ASA Score 3, 4 For ASA 3 and 4: Consider anesthesia and medical clearance. Also, for patients with a history of failed moderate sedation consider anesthesia. Airway Lungs Heart ASA score ASA 1: a normal healthy patient ASA 2: a patient with a mild systemic disease (mid diabetes, controlled hypertension, obesity ASA 3: a patient with a severe systemic disease that limits activity (angina, COPD, prior Myocardial infarction) x ASA 4: a patient with an incapacitating disease that is a constant threat to life (CHF, renal failure) ASA 5: a moribund patient not expected to survive 24 hrs. (ruptured aneurysm) ASA 6: a declared brain- patient whose organs are being harvested. For emergent operations, add the letter E after the classification Mallampati Classification Grade 3 Sedation Plan Analgesia, Amnesia, Plan communicated to team members, Discussed options with patient/fam, Discussed risks with patient/fam The patient is an appropriate candidate to undergo the planned procedure, sedation, and anesthesia. The patient immediately re-assessed prior to indication. TANVIR SARMIENTO MD Nov 24, 2020 11:30
--- NOTE | 2020-11-24 11:37 | Permanent Pacemaker Implant ---
Dual Chamber Pacemaker Implant PROCEDURE PHYSICIAN: Omaira Sharma DUAL CHAMBER PACEMAKER IMPLANTATION: DATE OF PROCEDURE: 11/24/20 REFERRING PHYSICIAN: Dr. Lorie Dye ATTENDING PHYSICIAN: Dr. Lorie Dye INDICATION: Complete heart block PREOPERATIVE DIAGNOSIS: Complete heart block POSTOPERATIVE DIAGNOSIS: Complete heart block HISTORY: Dual-chamber permanent pacemaker was recommended. PROCEDURE PERFORMED: 1. Dual-chamber permanent pacemaker implantation. 2. Fluoroscopy. 3. Central venous access. ANESTHESIA: Local anesthesia, conscious sedation. COMPLICATIONS: None. ESTIMATED BLOOD LOSS:20 mL. SPECIMENS: None. ORAL ANTICOAGULATION: None. FLUOROSCOPY TIME: FLUOROSCOPY DOSE: CONTRAST DOSE: PROCEDURE DETAILS: 79 years old gentleman admitted with complete heart block, has been complaining of fatigue and loss of energy for the past 2 weeks. He was severely hypertensive, on my evaluation he was bradycardic with a heart rate in the mid 30s, blood pressure 190-200 systolic, we decided to proceed with dual-chamber pacemaker, patient was doing well this morning, was uncomfortable in his bed, denied any chest pain. Had episode of severe bradycardia followed by ventricular tachycardia, ventricular fibrillation, CODE BLUE was called, ACLS protocol was followed, reestablish pulse, patient is intubated. Back to sinus rhythm with complete heart block. I decided to proceed with a pacemaker implant. Patient is sedated and intubated, local anesthesia applied then using modified Seldinger technique, 2 sticks to the left subclavian vein and accessing the left subclavian vein, J-wire was placed then the skin pocket was created and irrigated with saline. The first lead was the ventricular lead advanced to the apical right ventricle, good sensing and capture activity, lead was secured and at that moment we will continue with pacing, second lead was placed in the right atrial appendage and good sensing and capture activity, both leads were attached to a pulse generator device, tested with good sensing and capture activity, Dhruv patch was used to minimize the risk of infection then the skin pocket was closed on 2 layers of sutures. DEVICE INFORMATION: KT XT MRI Serial [id number] RA LEAD: [id number] RV LEAD: [id number] PER-OPERATIVE DEVICE INTERROGATION: Good sensing and capture activity IMMEDIATE POSTOPERATIVE DEVICE INTERROGATION: Atrial lead threshold 0.4 ms at 1.4 V, impedance 570 ohms, P wave 1.7 mV Ventricular lead 0.4 ms at 0.8 V, impedance 608, R wave 11.8 mV PLAN: The patient transferred to the ICU. We will continue with two more doses of IV antibiotics. We will check a chest x-ray and interrogate the device in the morning. The patient will continue on oral antibiotics for 5 days. CONCLUSION: Successful implantation of dual chamber pacemaker with no complication OMAIRA SHARMA MD Nov 24, 2020 11:37
[2020-11-24] MEDS ORDERED: EPINEPHrine 0.1 MG/ML 10 ML (HOSPIRA) SYR IJ ONE (11:39)
[2020-11-24] MEDS ORDERED: MAGNESIUM SULF 5 GM/10 ML VIAL IV ONE (11:39)
[2020-11-24] MEDS ORDERED: AMIODARONE (BOLUS) 150 MG/3 ML IV ONE (11:39)
[2020-11-24] MEDS ORDERED: D5W 250 ML (EXCEL) BAG IV ONE (11:39)
[2020-11-24] MEDS ORDERED: LIDOCAINE BOLUS 100 MG/5 ML (IMS) SYR INJ ONE (11:39)
[2020-11-24] MEDS ORDERED: AMIODARONE 450 MG/9 ML (CORDARONE) VIAL IV ONE (11:39)
[2020-11-24] MEDS ORDERED: SODIUM BICARB 8.4% 50 MEQ/50 ML (ABBOTT) SYR INJ ONE (11:39)
[2020-11-24] MEDS ORDERED: ATROPINE INJECTION 1 MG/10 ML SYR (ABBOTT) INJ ONE (11:39)
--- NOTE | 2020-11-24 11:39 | Diagnostic Imaging Report ---
INDICATION: Respiratory failure Portable chest 11:27 AM There is an ET tube projecting over the trachea. There is a dual-chamber pacemaker. There is an extensive infiltrate in the right lung which has alveolar and interstitial components. Left lung is relatively clear. There is no effusion or pneumothorax. IMPRESSION: Extensive infiltrate right lung new since previous day. ET tube projects over appropriate structures. Dictated by: Dictated on workstation # [id number]
[2020-11-24] MEDS ORDERED: ROCURONIUM 50 MG/5 ML (ZEMURON) VIAL IV PRN ×2 (12:00→12:15)
[2020-11-24] MEDS ORDERED: PROPOFOL DRIP (ICU) 100 ML IV SCH ×2 (12:00→12:15)
[2020-11-24] MEDS ORDERED: fentaNYL INJ 1,250 MCG in NS (IVPB) 225 ML IV SCH ×2 (12:00→12:15)
[2020-11-24] MEDS ORDERED: CALCIUM CHLORIDE 10% INJECTION 1 GM in NS (IVPB) 100 ML IV PRN ×2 (12:00→12:15)
[2020-11-24] MEDS ORDERED: SODIUM PHOSPHATE INJ 30 MM in NS (IVPB) 250 ML IV PRN ×2 (12:00→12:15)
[2020-11-24] MEDS ORDERED: LACRI-LUBE OPTHALMIC OINT 3.5 GM TUBE OU PRN ×3 (12:00→12:15)
[2020-11-24] MEDS ORDERED: MAG SULFATE 2 GM/50 ML IV PRE-MIX BAG IV NR (12:05)
[2020-11-24] MEDS ORDERED: ROCURONIUM 10 MG/ML 5 ML SYRINGE IV STA (12:08)
[2020-11-24] MEDS ORDERED: PROPOFOL DRIP (ICU) 100 ML IV ONE (12:08)
[2020-11-24] MEDS ORDERED: LORazepam INJ 2 MG/ML (ATIVAN) VIAL IV STA (12:09)
[2020-11-24] MEDS ORDERED: fentaNYL INJ 100 MCG/2 ML AMP IV STA (12:10)
[2020-11-24] MEDS ORDERED: MAGNESIUM SULFATE DRIP 500 ML IV SCH (12:15)
[2020-11-24] MEDS ORDERED: LORazepam INJECTION FOR DRIP 20 MG in D5W 100 ML IVPB 90 ML IV SCH (12:15)
[2020-11-24] MEDS ORDERED: LACRI-LUBE OPTHALMIC OINT 3.5 GM TUBE OU SCH (12:15)
[2020-11-24] MEDS: PROPOFOL DRIP (ICU) 100 ML IV SCH ×2 (12:20→18:21)
[2020-11-24 12:30] LABS: ABG BASE EXCESS -11.8 MMOL/L (-2.5-2.5); ABG OXYGEN SATURATION 96 % (94-100); ABG PCO2 38 MMHG (35-45); ABG PO2 108 MMHG (79-93); ABG TCO2 15.6 MMOL/L (21.0-31.0)
[2020-11-24] MEDS ORDERED: SODIUM PHOSPHATE IV PRN (12:30)
[2020-11-24] MEDS ORDERED: NS IV PRN (12:30)
[2020-11-24 12:32] LABS: ABG PH 7.21 (7.37-7.43); ALLENS TEST POS
[2020-11-24 12:33] LABS: INSPIRED O2 100%; PATIENT TEMP 37.6; VENTILATOR YES
--- NOTE | 2020-11-24 12:43 | Tele-ICU Progress Note ---
Progress Note 7/5 s/p CODE BLUE ( 30 min ) , v tach / vfib, s/p multiple shocks, ACLS, with RASC ->sinus rhythm with complete heart block. 7/5 s/p dual-chamber pacemaker implant without complication Now in ICU, hemodynamically stable off pressors CXR = pulmonary edema , ETT in good position Hypoxix , 100 FIO2 peep 10 Video assessment done not follows commands discussed with RN and RT Discussed with Dr Bai As per her discussion with cardiology - hypothermia protocol was initiated - orders placed in chart follow abx , labs Plans as delineated by bedside physicians / consultants mentioned above Focused Exam Height, Weight, BMI Height: '" Weight: lbs. oz. kg; 20.36 BMI Method: IFTIKHAR BERGERON MD Nov 24, 2020 12:43
[2020-11-24 13:14] LABS: BASOPHILS # (AUTO) 0.1 10^3/uL (0.0-0.1); BASOPHILS % (AUTO) 0 % (0-10); EOSINOPHILS % (AUTO) 0 % (0-10); HEMATOCRIT 38 % (40-54); HEMOGLOBIN 12.4 g/dL (13.3-17.7); LYMPHOCYTES # (AUTO) 1.3 10^3/uL (1.0-4.0); LYMPHOCYTES % (AUTO) 5 % (12-44); MEAN CORPUSCULAR HEMOGLOBIN 30 pg (25-34); MEAN CORPUSCULAR HGB CONC 33 g/dL (32-36); MEAN CORPUSCULAR VOLUME 93 fL (80-99); MONOCYTES # (AUTO) 1.8 10^3/uL (0.0-1.0); MONOCYTES % (AUTO) 7 % (0-12); NEUTROPHILS # (AUTO) 21.8 10^3/uL (1.8-7.8); NEUTROPHILS % (AUTO) 86 % (42-75); PLATELET COUNT 231 10^3/uL (130-400); WHITE BLOOD COUNT 25.3 10^3/uL (4.3-11.0)
[2020-11-24] MEDS ORDERED: NOREPINEPHRINE 8 MG/250 ML 250 ML IV ONE (13:16)
[2020-11-24] MEDS ORDERED: SODIUM BICARB 8.4% 50 MEQ/50 ML (ABBOTT) SYR ONE (13:18)
[2020-11-24 13:22] LABS: ALBUMIN 3.2 GM/DL (3.2-4.5); POTASSIUM 4.7 MMOL/L (3.6-5.0)
[2020-11-24 13:23] LABS: CALCIUM 7.7 MG/DL (8.5-10.1)
[2020-11-24 13:25] LABS: TOTAL PROTEIN 6.1 GM/DL (6.4-8.2)
[2020-11-24 13:26] LABS: BILIRUBIN,TOTAL 0.7 MG/DL (0.1-1.0)
[2020-11-24 13:28] LABS: CREATININE SERUM 1.6 MG/DL (0.60-1.30); PHOSPHORUS 6.6 MG/DL (2.3-4.7)
[2020-11-24 13:30] LABS: BILIRUBIN,DIRECT 0.4 MG/DL (0.0-0.3); BILIRUBIN,INDIRECT 0.3 MG/DL; NEUTROPHILS % (MANUAL) 93 %
[2020-11-24] MEDS ORDERED: SODIUM BICARB 8.4% 50 MEQ/50 ML (ABBOTT) SYR IV NR (13:30)
[2020-11-24] MEDS ORDERED: SODIUM BICARB 8.4% 50 MEQ/50 ML VIAL IV ONE (13:30)
[2020-11-24 13:31] LABS: BAND NEUTROPHILS 0 %; BASOPHILS % (MANUAL) 0 %; EOSINOPHILS % (MANUAL) 0 %; LYMPHOCYTES % (MANUAL) 4 %; MAGNESIUM 2.4 MG/DL (1.6-2.4); MONOCYTES % (MANUAL) 3 %; RBC MORPH NORMAL
[2020-11-24] MEDS: NOREPINEPHRINE 8 MG/250 ML 250 ML IV SCH (13:35)
[2020-11-24 13:37] LABS: FIBRINOGEN 246 MG/DL (221-496); INR 1.6 (0.8-1.4); PARTIAL THROMBOPLASTIN TIME 36 SEC (24-35); PROTHROMBIN TIME PATIENT 19.4 SEC (12.2-14.7)
[2020-11-24 13:39] LABS: FIBRIN DEGRADATION PRODUCTS > 20.00 UG/ML (0.00-0.49)
[2020-11-24] MEDS: MAGNESIUM SULFATE DRIP 500 ML IV SCH (13:47)
[2020-11-24] MEDS: LACRI-LUBE OPTHALMIC OINT 3.5 GM TUBE OU SCH ×3 (13:55→23:30)
--- NOTE | 2020-11-24 13:55 | Progress Note-Post Operative ---
Post-Operative Progess Note Surgeon (s)/Vehicle Controls Engineer (s) Surgeon DELTA BETH DO Vehicle Controls Engineer: none Pre-Operative Diagnosis Venous insufficiency, Hypotension, Cardiac Arrest Post-Operative Diagnosis same Procedure & Operative Findings Date of Procedure 11/24/20 Procedure Performed/Findings 1. Central line placement with US guidance 2. Arterial line placement with US guidance The patient was in their bed in the ICU, was prepped and draped in the sterile fashion. A surgical pause was performed. Ultrasound was used to locate the right femoral vein. Using an 18 gauge finder needle and watching with the US; the right internal jugular vein was accessed. Dark nonpulsatile blood was withdrawn. The wire was inserted. US assured proper placement. The needle was removed. A [#11] blade scalpel was used to make a stab incision along the guidewire. Dilator sheath was then advanced over the wire using Seldinger technique and the dilator was removed. The Groshong catheter was inserted over the guide wire using the Seldinger technique. The Groshong wire was removed. The catheter was then accessed in all three ports without difficulty. Good flash of blood was seen and it was then flushed with saline. The catheter was sutured in place with 3-0 silk on a nayla needle. The areas were then washed and dried. Sterile dressing was placed over incision. The patient tolerated the procedure well without complication. I stayed sterile and nurse prepped the left arm/wrist for Arterial line plac ement. Used the US to find the left radial artery and then used a 22 gauge arterial catheter, watched the needle go into the artery on the third attempt. Able to then thread the wire easily and then advanced the catheter. Removed the needle and wire com bination; and bright red blood was coming out of the catheter. This was then hooked up to the pressure bag/art line set up to be able to monitor blood pressure. Sterile op- site dressing was then placed. Anesthesia Type Pt sedated on vent with propofol Estimated Blood Loss Estimated blood loss (mL): scant Specimens/Packing Specimens Removed none DELTA BETH DO Nov 24, 2020 13:55
[2020-11-24] MEDS ORDERED: busPIRone 15 MG (BUSPAR) TABLET GT SCH (14:00)
[2020-11-24] MEDS: ACETAMINOPHEN 325 MG TABLET GT SCH ×3 (14:14→23:29)
[2020-11-24] MEDS: PANTOPRAZOLE 40 MG (PROTONIX) VIAL IV SCH (14:14)
[2020-11-24] MEDS: LACRI-LUBE OPTHALMIC OINT 3.5 GM TUBE OU PRN (14:15)
[2020-11-24 14:46] VITALS: BP 188/81
[2020-11-24] MEDS ORDERED: LORazepam INJ 2 MG/ML (ATIVAN) VIAL ONE (15:38)
[2020-11-24] MEDS: busPIRone 15 MG (BUSPAR) TABLET GT SCH ×2 (15:40→21:09)
[2020-11-24] MEDS: LORazepam INJECTION FOR DRIP 20 MG in D5W 100 ML IVPB 90 ML IV SCH (15:49)
[2020-11-24] MEDS: ceFAZolin INJECTION 1,000 MG in WATER (STERILE) FOR INJECTION 10 ML IV SCH ×2 (15:51→21:09)
[2020-11-24 16:38] LABS: ABG BASE EXCESS -10.5 MMOL/L (-2.5-2.5); ABG OXYGEN SATURATION 95 % (94-100); ABG PCO2 36 MMHG (35-45); ABG PO2 78 MMHG (79-93); ABG TCO2 17.2 MMOL/L (21.0-31.0)
[2020-11-24 16:41] LABS: ABG PH 7.25 (7.37-7.43)
[2020-11-24 16:44] LABS: ALLENS TEST POS
[2020-11-24 16:45] LABS: PATIENT TEMP 33.9; VENTILATOR NO
[2020-11-24] MEDS ORDERED: AMIODARONE INJECTION 450 MG in D5W IV SOLUTION (EXCEL) 250 ML IV SCH (17:00)
[2020-11-24] MEDS ORDERED: POTASSIUM CL 10MEQ/50ML IVPB 50 ML IV SCH (18:00)
[2020-11-24] MEDS ORDERED: ACETAMINOPHEN 325 MG TABLET GT SCH (18:00)
[2020-11-24 18:13] LABS: BASOPHILS % (AUTO) 0 % (0-10); EOSINOPHILS % (AUTO) 0 % (0-10); HEMATOCRIT 35 % (40-54); HEMOGLOBIN 11.3 g/dL (13.3-17.7); LYMPHOCYTES # (AUTO) 0.7 10^3/uL (1.0-4.0); LYMPHOCYTES % (AUTO) 2 % (12-44); MEAN CORPUSCULAR HEMOGLOBIN 30 pg (25-34); MEAN CORPUSCULAR HGB CONC 32 g/dL (32-36); MEAN CORPUSCULAR VOLUME 93 fL (80-99); MEAN PLATELET VOLUME 9.7 fL (9.0-12.2); MONOCYTES # (AUTO) 1.2 10^3/uL (0.0-1.0); MONOCYTES % (AUTO) 5 % (0-12); NEUTROPHILS # (AUTO) 25.4 10^3/uL (1.8-7.8); NEUTROPHILS % (AUTO) 92 % (42-75); PLATELET COUNT 161 10^3/uL (130-400); WHITE BLOOD COUNT 27.6 10^3/uL (4.3-11.0)
[2020-11-24 18:25] LABS: CALCIUM 8.2 MG/DL (8.5-10.1)
[2020-11-24 18:26] LABS: INR 1.7 (0.8-1.4); PROTHROMBIN TIME PATIENT 20.3 SEC (12.2-14.7)
[2020-11-24 18:29] LABS: CREATININE SERUM 1.68 MG/DL (0.60-1.30); PHOSPHORUS 5.4 MG/DL (2.3-4.7)
[2020-11-24 18:44] LABS: MAGNESIUM 4.9 MG/DL (1.6-2.4)
[2020-11-24 19:08] VITALS: BP 123/69
[2020-11-24 21:29] VITALS: BP 135/78
[2020-11-25] MEDS: PROPOFOL DRIP (ICU) 100 ML IV SCH ×3 (00:25→13:30)
[2020-11-25 00:33] LABS: INR 1.5 (0.8-1.4); PROTHROMBIN TIME PATIENT 18.7 SEC (12.2-14.7)
[2020-11-25 00:33] LABS: POTASSIUM 3.6 MMOL/L (3.6-5.0)
[2020-11-25 00:34] LABS: CALCIUM 7.9 MG/DL (8.5-10.1)
[2020-11-25 00:38] LABS: BASOPHILS % (AUTO) 0 % (0-10); CREATININE SERUM 1.55 MG/DL (0.60-1.30); EOSINOPHILS % (AUTO) 0 % (0-10); HEMATOCRIT 35 % (40-54); HEMOGLOBIN 11.4 g/dL (13.3-17.7); LYMPHOCYTES # (AUTO) 1.2 10^3/uL (1.0-4.0); LYMPHOCYTES % (AUTO) 6 % (12-44); MEAN CORPUSCULAR HEMOGLOBIN 30 pg (25-34); MEAN CORPUSCULAR HGB CONC 33 g/dL (32-36); MEAN CORPUSCULAR VOLUME 91 fL (80-99); MEAN PLATELET VOLUME 9.9 fL (9.0-12.2); MONOCYTES # (AUTO) 1.2 10^3/uL (0.0-1.0); MONOCYTES % (AUTO) 5 % (0-12); NEUTROPHILS # (AUTO) 19.7 10^3/uL (1.8-7.8); NEUTROPHILS % (AUTO) 89 % (42-75); PHOSPHORUS 3.7 MG/DL (2.3-4.7); PLATELET COUNT 153 10^3/uL (130-400); WHITE BLOOD COUNT 22.3 10^3/uL (4.3-11.0)
[2020-11-25 01:46] LABS: ALBUMIN 2.9 GM/DL (3.2-4.5); POTASSIUM 3.7 MMOL/L (3.6-5.0)
[2020-11-25 01:49] LABS: TOTAL PROTEIN 5.5 GM/DL (6.4-8.2)
[2020-11-25 01:50] LABS: BILIRUBIN,TOTAL 0.6 MG/DL (0.1-1.0)
[2020-11-25 01:52] LABS: CREATININE SERUM 1.57 MG/DL (0.60-1.30)
[2020-11-25 02:13] VITALS: BP 140/75
[2020-11-25 02:48] LABS: POTASSIUM 3.5 MMOL/L (3.6-5.0)
[2020-11-25 02:49] LABS: CALCIUM 7.9 MG/DL (8.5-10.1)
[2020-11-25 02:53] LABS: PHOSPHORUS 3.7 MG/DL (2.3-4.7)
[2020-11-25 02:54] LABS: CREATININE SERUM 1.46 MG/DL (0.60-1.30)
[2020-11-25 02:56] LABS: MAGNESIUM 3.8 MG/DL (1.6-2.4)
[2020-11-25] MEDS: ceFAZolin INJECTION 1,000 MG in WATER (STERILE) FOR INJECTION 10 ML IV SCH ×2 (05:21→13:34)
[2020-11-25] MEDS: busPIRone 15 MG (BUSPAR) TABLET GT SCH ×2 (05:21→13:34)
[2020-11-25] MEDS: ACETAMINOPHEN 325 MG TABLET GT SCH ×2 (05:21→12:00)
[2020-11-25] MEDS: POTASSIUM CL 10MEQ/50ML IVPB 50 ML IV SCH ×3 (05:30→11:35)
[2020-11-25] MEDS: LACRI-LUBE OPTHALMIC OINT 3.5 GM TUBE OU SCH ×2 (05:30→12:00)
[2020-11-25 06:12] LABS: BASOPHILS % (AUTO) 0 % (0-10); EOSINOPHILS # (AUTO) 0.1 10^3/uL (0.0-0.3); EOSINOPHILS % (AUTO) 0 % (0-10); HEMATOCRIT 33 % (40-54); HEMOGLOBIN 11.1 g/dL (13.3-17.7); LYMPHOCYTES # (AUTO) 1.6 10^3/uL (1.0-4.0); LYMPHOCYTES % (AUTO) 9 % (12-44); MEAN CORPUSCULAR HEMOGLOBIN 30 pg (25-34); MEAN CORPUSCULAR HGB CONC 34 g/dL (32-36); MEAN CORPUSCULAR VOLUME 89 fL (80-99); MEAN PLATELET VOLUME 10.3 fL (9.0-12.2); MONOCYTES # (AUTO) 1.1 10^3/uL (0.0-1.0); MONOCYTES % (AUTO) 6 % (0-12); NEUTROPHILS # (AUTO) 15.1 10^3/uL (1.8-7.8); NEUTROPHILS % (AUTO) 84 % (42-75); PLATELET COUNT 137 10^3/uL (130-400)
[2020-11-25 06:20] LABS: ABG BASE EXCESS -4.9 MMOL/L (-2.5-2.5); ABG OXYGEN SATURATION 98 % (94-100); ABG PCO2 22 MMHG (35-45); ABG PH 7.51 (7.37-7.43); ABG PO2 134 MMHG (79-93); ABG TCO2 19.1 MMOL/L (21.0-31.0)
[2020-11-25 06:21] LABS: ALLENS TEST ART LINE; INSPIRED O2 35%; PATIENT TEMP 33.2; VENTILATOR YES
[2020-11-25 06:41] LABS: ALBUMIN 2.8 GM/DL (3.2-4.5); INR 1.5 (0.8-1.4); POTASSIUM 3.6 MMOL/L (3.6-5.0); PROTHROMBIN TIME PATIENT 18.3 SEC (12.2-14.7)
[2020-11-25] MEDS: NS IV 1000 ML 1,000 ML IV SCH (06:41)
[2020-11-25 06:42] LABS: CALCIUM 7.7 MG/DL (8.5-10.1)
[2020-11-25 06:43] LABS: TOTAL PROTEIN 5.3 GM/DL (6.4-8.2)
[2020-11-25 06:45] LABS: BILIRUBIN,TOTAL 0.6 MG/DL (0.1-1.0)
--- NOTE | 2020-11-25 06:45 | Occ Therapy Progress Note ---
Therapy Progress Note Pt is currently intubated. OT will continue to monitor pt status and initiate treatment when pt is medically stable and able to actively participate in skilled therapy. LOY CHAVEZ Nov 25, 2020 06:45
[2020-11-25 06:47] LABS: CREATININE SERUM 1.53 MG/DL (0.60-1.30); PHOSPHORUS 3.7 MG/DL (2.3-4.7)
[2020-11-25 06:54] LABS: MAGNESIUM 5.2 MG/DL (1.6-2.4)
[2020-11-25 07:03] VITALS: BP 140/75
[2020-11-25] MEDS: SENNA W/DOCUSATE (SENOKOT S) TABLET PO SCH (07:58)
[2020-11-25] MEDS: PANTOPRAZOLE 40 MG (PROTONIX) VIAL IV SCH (07:58)
--- NOTE | 2020-11-25 07:59 | Cardiology Progress Note ---
Subjective Date Seen by Provider: Nov 25, 2020 Time Seen by Provider: 07:57 Subjective/Events-last exam Patient was seen at bedside, sedated and intubated Review of Systems General: Other (Sedated and intubated) Focused Exam Lactate Level 11/25/20 02:23: Lactic Acid Level 3.23*H 11/25/20 04:55: Lactic Acid Level 2.74*H 11/25/20 06:50: Lactic Acid Level 2.17*H Lactic Acid Level Laboratory Tests Test 11/25/20 04:55 11/25/20 06:50 Lactic Acid Level 2.74 MMOL/L (0.50-2.00) *H 2.17 MMOL/L (0.50-2.00) *H Objective-Cardiology Exam Last Set of Vital Signs Vital Signs 11/25/20 11/25/20 11/25/20 07:00 07:03 07:31 Temp 33.3 Pulse 61 Resp 18 B/P (MAP) 130/69 (89) Pulse Ox 100 O2 Delivery Mechanical Ventilator O2 Flow Rate 35.00 FiO2 35 I&O Intake and Output 11/25/20 00:00 Intake Total 1300 ml Output Total 2005 ml Balance -705 ml Intake Oral 125 ml IV Total 1100 ml Tube Feeding 0 ml Other 75 ml Output Urine Total 1930 ml Oral Regurgitation 75 ml General: Other (Sedated and intubated) HEENT: Atraumatic, PERRLA Neck: Supple Lungs: Clear to Auscultation Heart: Regular Rate, Normal S1, Normal S2 Abdomen: Normal Bowel Sounds Extremities: No Clubbing Skin: No Rashes Neuro: Other (Sedated and intubated) Psych/Mental Status: Other (Sedated and intubated) Results Lab Laboratory Tests 11/24/20 12:48 11/24/20 14:50 11/24/20 18:00 11/24/20 20:12 11/24/20 22:12 11/24/20 23:59 11/25/20 00:00 11/25/20 02:23 11/25/20 04:55 11/25/20 06:00 A/P-Cardiology Admission Diagnosis Acute respiratory failure Complete heart block Coronary artery disease Hypertension Hyperlipidemia Assessment/Plan Status post CODE BLUE, patient had ventricular tachycardia and fibrillation, required chest compressions and multiple shocks, given epinephrine, restored his baseline rhythm which is sinus rhythm with complete heart block. Dual-chamber pacemaker was implanted on November 24, 2020. 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 Hypertension, tolerating Lopressor well. Continue to monitor Coronary artery disease, reporting history of heart attack about 5 years ago with 3 stents. No recent myocardial infarction, mild elevation in troponin, type II myocardial infarction probably secondary to severe bradycardia Hyperlipidemia, monitor lipids TANVIR SARMIENTO MD Nov 25, 2020 07:58
--- NOTE | 2020-11-25 08:06 | Tele-ICU Progress Note ---
Subjective Date Seen by a Provider: Nov 25, 2020 Time Seen by a Provider: 08:05 Sepsis Event Evaluation Height, Weight, BMI Height: '" Weight: lbs. oz. kg; 20.36 BMI Method: Focused Exam Lactate Level 11/25/20 02:23: Lactic Acid Level 3.23*H 11/25/20 04:55: Lactic Acid Level 2.74*H 11/25/20 06:50: Lactic Acid Level 2.17*H Lactic Acid Level Laboratory Tests Test 11/25/20 04:55 11/25/20 06:50 Lactic Acid Level 2.74 MMOL/L (0.50-2.00) *H 2.17 MMOL/L (0.50-2.00) *H Exam Exam Patient acknowledged, consented, and participated in this virtual visit which was conducted using real time audio/video Vital Signs Date Time Temp Pulse Resp B/P (MAP) Pulse Ox O2 Delivery O2 Flow Rate FiO2 11/25/20 07:31 100 Mechanical Ventilator 35 11/25/20 07:03 61 18 60 35 11/25/20 07:00 33.3 11/25/20 07:00 33.3 60 18 130/69 (89) 99 Mechanical Ventilator 35.00 11/25/20 06:45 33.3 11/25/20 06:40 60 125/66 11/25/20 06:30 33.3 11/25/20 06:15 33.3 11/25/20 06:00 33.3 11/25/20 06:00 33.3 58 18 122/65 (84) 98 Mechanical Ventilator 35.00 11/25/20 05:45 33.2 11/25/20 05:15 33.0 11/25/20 05:00 32.9 60 18 108/61 (77) 98 Mechanical Ventilator 35.00 11/25/20 05:00 32.9 11/25/20 04:45 32.8 11/25/20 04:15 32.5 11/25/20 04:00 32.5 11/25/20 04:00 32.5 60 18 123/67 (85) 99 Mechanical Ventilator 35.00 11/25/20 04:00 99 Mechanical Ventilator 35 11/25/20 03:45 32.5 11/25/20 03:30 32.5 11/25/20 03:15 32.5 7 03:00 32.6 11/25/20 02:45 32.7 11/25/20 02:30 32.8 7 02:23 Mechanical Ventilator 35.00 11/25/20 02:15 32.9 7 02:13 61 18 100 35 11/25/20 02:00 33.1 60 18 138/74 (95) 99 Mechanical Ventilator 50.00 11/25/20 02:00 33.1 11/25/20 01:45 33.2 11/25/20 01:30 33.3 11/25/20 01:15 33.4 11/25/20 01:00 33.5 11/25/20 01:00 60 11/25/20 01:00 33.5 60 18 151/76 (101) 100 Mechanical Ventilator 50.00 11/25/20 00:45 33.5 11/25/20 00:30 33.5 11/25/20 00:25 33.5 11/25/20 00:25 60 135/72 11/25/20 00:15 33.4 11/25/20 00:00 33.4 11/25/20 00:00 33.4 60 18 126/68 (87) 99 Mechanical Ventilator 50.00 11/24/20 23:55 98 Mechanical Ventilator 50 11/24/20 23:45 33.3 11/24/20 23:30 33.0 11/24/20 23:29 33.0 11/24/20 23:15 32.9 11/24/20 23:00 32.7 11/24/20 23:00 32.7 60 18 129/74 (92) 98 Mechanical Ventilator 50.00 11/24/20 22:45 32.6 11/24/20 22:30 32.4 11/24/20 22:15 32.3 11/24/20 22:00 32.2 11/24/20 22:00 32.2 60 18 127/75 (92) 98 Mechanical Ventilator 50.00 11/24/20 21:45 32.2 11/24/20 21:30 32.3 11/24/20 21:29 60 18 99 50 11/24/20 21:15 32.3 11/24/20 21:00 32.6 60 18 138/80 (99) 99 Mechanical Ventilator 50.00 11/24/20 21:00 32.6 7 20:45 32.8 7 20:30 33.0 7 20:22 33.0 7 20:22 33.0 7 20:15 33.1 7 20:00 33.3 11/24/20 20:00 33.3 60 18 151/83 (105) 100 Mechanical Ventilator 60.00 11/24/20 20:00 Mechanical Ventilator 60 11/24/20 19:45 33.4 11/24/20 19:30 33.5 11/24/20 19:15 33.6 11/24/20 19:08 60 18 98 60 11/24/20 19:00 33.6 11/24/20 19:00 33.6 60 18 134/73 (93) 98 Mechanical Ventilator 60.00 11/24/20 19:00 60 11/24/20 18:45 33.7 11/24/20 18:30 33.6 11/24/20 18:21 60 110/64 11/24/20 18:15 33.4 11/24/20 18:00 33.3 11/24/20 18:00 60 17 105/61 (76) 98 Mechanical Ventilator 100.00 11/24/20 18:00 33.3 11/24/20 17:55 33.2 11/24/20 17:40 33.0 11/24/20 17:25 32.7 11/24/20 17:10 32.5 11/24/20 17:00 32.5 11/24/20 17:00 60 17 106/60 (75) 98 Mechanical Ventilator 100.00 11/24/20 16:57 60 85/54 11/24/20 16:55 32.3 11/24/20 16:40 32.2 11/24/20 16:25 32.1 11/24/20 16:10 32.2 11/24/20 16:00 32.2 11/24/20 16:00 92 Mechanical Ventilator 100 11/24/20 16:00 60 18 136/73 (94) 95 Mechanical Ventilator 100.00 11/24/20 15:55 32.2 11/24/20 15:49 59 140/72 7//21 15:40 32.5 11/24/20 15:25 32.9 11/24/20 15:10 33.0 11/24/20 15:00 59 21 178/78 (111) 98 Mechanical Ventilator 100.00 11/24/20 15:00 33.0 11/24/20 14:55 33.1 11/24/20 14:49 60 194/84 11/24/20 14:46 60 24 100 100 11/24/20 14:41 60 190/82 11/24/20 14:40 34.5 11/24/20 14:25 35.2 11/24/20 14:10 35.7 11/24/20 14:00 60 22 191/84 (119) 95 Mechanical Ventilator 100.00 Automatic Cuff 11/24/20 13:55 36.4 11/24/20 13:40 36.9 11/24/20 13:35 60 169/79 11/24/20 13:24 37.4 11/24/20 13:09 37.5 11/24/20 13:00 37.6 60 22 151/76 (101) 95 Mechanical Ventilator 100.00 151/76 (101) 11/24/20 12:41 87 11/24/20 12:30 37.2 11/24/20 12:20 60 94/58 11/24/20 12:08 89 35 93 100 11/24/20 12:00 86 197/125 (149) 95 Mechanical Ventilator 100.00 11/24/20 12:00 92 Mechanical Ventilator 100 11/24/20 09:00 33 17 180/74 (109) 91 Room Air I & O 11/25/20 07:00 Intake Total 485 ml Output Total 1760 ml Balance -1275 ml Height & Weight Height: '" Weight: lbs. oz. kg; 20.36 BMI Method: General Appearance: Other (Minimally responsive with agonal breathing) HEENT: PERRL/EOMI, TMs Normal, Normal ENT Inspection, Pharynx Normal, Moist Mucous Membranes Neck: Full Range of Motion, Normal Inspection, Non Tender, Supple, Carotid Bruit Respiratory: Other (Dental breathing, later intubated) Cardiovascular: Other (Myriad of heart rhythms) Capillary Refill: Less Than 3 Seconds Peripheral Pulses: 1+ Dorsalis Pedis (R), 1+ Left Dors-Pedis (L), 1+ Radial Pulses (R), 1+ Radial Pulses (L) Gastrointestinal: soft Extremity: Normal Capillary Refill, Normal Inspection, Normal Range of Motion Neurologic/Psychiatric: Other (Unresponsive) Skin: Normal Color, Warm/Dry Lymphatic: No Adenopathy Results Lab Laboratory Tests 11/23/20 12:30 11/24/20 03:46 11/24/20 06:52 11/24/20 12:48 11/24/20 14:50 11/24/20 18:00 11/24/20 20:12 11/24/20 22:12 11/24/20 23:59 11/25/20 00:00 11/25/20 02:23 11/25/20 04:55 11/25/20 06:00 Assessment/Plan Assessment/Plan Available chart/ vitals / labs / Images reviewed Video assessment done using teleICU camera, rest of exam as per RN Discussed with RN Events overnight : Afebrile t 33 hemodynamically stable, on levo 0.03 pressors, I/O = neg 700 Drips: propofol 40 , amio , levo , ns 30 VENT SETTINGS. AC 22 500 peep 10 35 % ABG reviewed Sedation: RASS -4 TTM As per RN exam : rrr . no wheezing , less secretins in ET Consultants: [facility] Hospital course: [birth year]79 y/o male presents to the ED just not feeling right. EKG shows HR of 30. Given atropine with temporary improvement 7/5 s/p CODE BLUE ( 30 min ) , v tach / vfib, s/p multiple shocks, ACLS, with RASC ->sinus rhythm with complete heart block. 7/5 s/p dual-chamber pacemaker implant without complication A/P Cardiac arrest 7/5 s/p - v tach / vfib, s/p multiple shocks, ACLS, with RASC - TTM initiated , goal T 11/24 20.20 - CMP - follow -amio gtt, as per cards - ECHO - post arrest Acute resp failure - post arrest : pulm edema and bloody secretions - improved to 35 % today - follow - adjust vent setting s Shock - minmal dose of levo - probaly combination of cardiogenic / medications - continue to wean , do not suspec sepsis Encefalopathy - post arrest not following commands -> started on TTM - 11/24 decorticating on exam - CT head ordered - not done - reason not clear now - , one dose of Keppra given for possible subclinical seizures with anoxic brain damage - cont sedation and shivering mamagement for now - monitor Complete heart block, severe bradycardia -11/24 s/p dual-chamber pacemaker implant PHILIP - post arrest - follow Shock liver post arrest - follow Lines : 11/24 - femoral central line , (Central Line Necessity Reviewed) Harrison: 11/24 O/5 Analgesia: TTM Sedation: TTM HOB Elevation: confirmed Nutrition: NPO VTE Prophylaxis: hep sq Stress Ulcer Prophylaxis: PPI Glycemic Control: + Plans in collaboration with bedside consultants and IM MDs. Discussed with RN to reach out if any questions or concerns A total of 38 minutes of critical care time was devoted to this patient today, required to treat and/or prevent further deterioration of critical care condition ( as above ) . IFTIKHAR BERGERON MD Nov 25, 2020 08:06
--- NOTE | 2020-11-25 08:12 | Physical Therapy Progress Note ---
Therapy Progress Note Patient s/p Code Blue and sedated/intubated. PT will continue to monitor patient status. ABIGAIL CASTILLO PT Nov 25, 2020 08:12
[2020-11-25] MEDS: LORazepam INJECTION FOR DRIP 20 MG in D5W 100 ML IVPB 90 ML IV SCH (08:44)
--- NOTE | 2020-11-25 08:54 | Diagnostic Imaging Report ---
EXAMINATION: Portable semierect AP chest at 2:09AM. INDICATION: Respiratory distress The heart size is within normal limits and the heart does seem less prominent than noted on the prior exam of 11/24/2020. The diffuse alveolar/interstitial pulmonary infiltrates involving the right lung seen previously is again evident. The right lung does seem somewhat better aerated. The left upper lung also appears more lucent than on the prior exam. There is still a small amount of residual atelectasis/infiltrate and fluid in the left lung base. The mediastinum is not widened. The osseous structures are intact. The supportive tubes and lines remain in good position. In the interval since the prior exam an NG line has been inserted. The tip of the NG line overlies the gastric body. IMPRESSION: The appearance of the chest has improved since the prior exam as the right lung and left upper lung do seem better aerated. There is still some residual atelectasis/infiltrate bilaterally however. A follow-up study would be recommended for continued evaluation. Dictated by: Dictated on workstation # [id number]
[2020-11-25 09:14] VITALS: BP 139/82
--- NOTE | 2020-11-25 09:31 | Progress Note ---
Subjective Subjective/Events-last exam Pt is currently under sedation, intubated and in hypothermia protocol. He is 1 day S/P code blue, and 1 day S/P dual-chamber pacemaker procedure. Focused Exam Lactate Level 11/25/20 02:23: Lactic Acid Level 3.23*H 11/25/20 04:55: Lactic Acid Level 2.74*H 11/25/20 06:50: Lactic Acid Level 2.17*H Respiratory: Lungs Clear, Other (Currently inbuated and ventilated. ) Cardiovascular: Regular Rate, Rhythm, No JVD, No Murmur, Other (dual-chamber pacemaker ) Peripheral Pulses: 1+ Dorsalis Pedis (R), 1+ Left Dors-Pedis (L); 2+ Radial Pulses (R), 2+ Radial Pulses (L) Skin: No warm/dry; cool; No diaphoresis; pallor Lactic Acid Level Laboratory Tests Test 11/25/20 06:50 Lactic Acid Level 2.17 MMOL/L (0.50-2.00) *H Objective Exam Last Set of Vital Signs Vital Signs Date Time Temp Pulse Resp B/P (MAP) Pulse Ox O2 Delivery O2 Flow Rate FiO2 11/25/20 09:14 60 12 99 35 11/25/20 09:00 32.8 132/69 (90) Mechanical Ventilator 35.00 Capillary Refill : Less Than 3 Seconds I&O Intake and Output 11/25/20 00:00 Intake Total 1300 ml Output Total 2005 ml Balance -705 ml Intake Oral 125 ml IV Total 1100 ml Tube Feeding 0 ml Other 75 ml Output Urine Total 1930 ml Oral Regurgitation 75 ml General: Other (intubated and sedated ) HEENT: Other (pupils unreactive to light ) Neck: Supple Lungs: Clear to Auscultation, Other (intubated and ventilated ) Heart: Regular Rate, No Murmurs Extremities: No Edema, Normal Pulses Neuro: Other (Sedated) Results/Procedures Lab Laboratory Tests 11/24/20 12:21: Blood Gas Puncture Site HT RAD, Blood Gas Patient Temperature 37.6, Arterial Blood pH 7.21*L, Arterial Blood Partial Pressure CO2 38, Arterial Blood Partial Pressure O2 108H, Arterial Blood HCO3 15*L, Arterial Blood Total CO2 15.6L, Arterial Blood Oxygen Saturation 96, Arterial Blood Base Excess -11.8L, Gianluca Test POS, Blood Gas Ventilator Setting YES, Blood Gas Inspired Oxygen 100% 11/24/20 12:34: Glucometer 201H 11/24/20 12:47: Lactic Acid Level 8.36*H 11/24/20 12:48: White Blood Count 25.3H, Red Blood Count 4.10L, Hemoglobin 12.4L, Hematocrit 38L , Mean Corpuscular Volume 93, Mean Corpuscular Hemoglobin 30, Mean Corpuscular Hemoglobin Concent 33, Red Cell Distribution Width 14.9H, Platelet Count 231, Mean Platelet Volume 10.0, Immature Granulocyte % (Auto) 1, Neutrophils (%) (Auto) 86H, Lymphocytes (%) (Auto) 5L, Monocytes (%) (Auto) 7, Eosinophils (%) (Auto) 0, Basophils (%) (Auto) 0, Neutrophils # (Auto) 21.8H, Lymphocytes # (Auto) 1.3, Monocytes # (Auto) 1.8H, Eosinophils # (Auto) 0.0, Basophils # (Auto) 0.1, Immature Granulocyte # (Auto) 0.4H, Neutrophils % (Manual) 93, Lymphocytes % (Manual) 4, Monocytes % (Manual) 3, Eosinophils % (Manual) 0, Basophils % (Manual) 0, Band Neutrophils 0, Percent Immature Platelet Fraction 3.5, Blood Morphology Comment NORMAL, Prothrombin Time 19.4H, INR Comment 1.6H, Activated Partial Thromboplast Time 36H, Fibrinogen 246, D-Dimer > 20.00*H, Sod ium Level 144, Potassium Level 4.7, Chloride Level 110H, Carbon Dioxide Level 14L, Anion Gap 20H, Blood Urea Nitrogen 29H, Creatinine 1.60H, Estimat Gl omerular Filtration Rate 42, BUN/Creatinine Ratio 18, Glucose Level 200H, Calcium Level 7.7L, Corrected Calcium 8.3L, Phosphorus Level 6.6H, Magnesium Level 2.4, Total Bilirubin 0.7, Direct Bilirubin 0.4H, Indirect Bilirubin 0.3, Aspartate Amino Transf (AST/SGOT) 118H, Alanine Aminotransferase (ALT/SGPT) 108H , Alkaline Phosphatase 114, Total Creatine Kinase 518H, Troponin I 0.867*H, Total Protein 6.1L, Albumin 3.2, Triglycerides Level 143, Amylase Level 52, Lipase 30 11/24/20 13:24: Glucometer 169H 11/24/20 14:29: Glucometer 158H 11/24/20 14:50: Potassium Level 3.8, Lactic Acid Level 8.01*H 11/24/20 15:45: Blood Gas Puncture Site RGHT RAD, Blood Gas Patient Temperature 33.9, Arterial Blood pH 7.25*L, Arterial Blood Partial Pressure CO2 36, Arterial Blood Partial Pressure O2 78L, Arterial Blood HCO3 16*L, Arterial Blood Total CO2 17.2L, Arterial Blood Oxygen Saturation 95, Arterial Blood Base Excess -10.5L, Gianluca Test POS, Blood Gas Ventilator Setting NO, Blood Gas Inspired Oxygen NA 11/24/20 16:02: Glucometer 174H 11/24/20 17:09: Glucometer 176H 11/24/20 18:00: White Blood Count 27.6H, Red Blood Count 3.79L, Hemoglobin 11.3L, Hematocrit 35L , Mean Corpuscular Volume 93, Mean Corpuscular Hemoglobin 30, Mean Corpuscular Hemoglobin Concent 32, Red Cell Distribution Width 14.9H, Platelet Count 161, Mean Platelet Volume 9.7, Immature Granulocyte % (Auto) 1, Neutrophils (%) (Auto) 92H, Lymphocytes (%) (Auto) 2L, Monocytes (%) (Auto) 5, Eosinophils (%) (Auto) 0, Basophils (%) (Auto) 0, Neutrophils # (Auto) 25.4H, Lymphocytes # (Auto) 0.7L, Monocytes # (Auto) 1.2H, Eosinophils # (Auto) 0.0, Basophils # (Auto) 0.0, Immature Granulocyte # (Auto) 0.2H, Prothrombin Time 20.3H, INR Comment 1.7H, Activated Partial Thromboplast Time 40H, Sodium Level 144, Potassium Level 4.0, Chloride Level 109H, Carbon Dioxide Level 16L, Anion Gap 19H, Blood Urea Nitrogen 32H, Creatinine 1.68H, Estimat Glomerular Filtration Rate 40, BUN/Creatinine Ratio 19, Glucose Level 206H, Calcium Level 8.2L, Phosphorus Level 5.4H, Magnesium Level 4.9#*H 11/24/20 18:05: Glucometer 172H 11/24/20 19:42: Glucometer 180H 11/24/20 20:06: Glucometer 180H 11/24/20 20:12: Potassium Level 3.7, Lactic Acid Level 2.76*H 11/24/20 21:01: Glucometer 173H 11/24/20 22:11: Glucometer 169H 11/24/20 22:12: Potassium Level 3.6, Lactic Acid Level 4.71*H 11/24/20 22:59: Glucometer 170H 11/24/20 23:59: Potassium Level 3.6, Lactic Acid Level 4.02*H, White Blood Count 22.3H, Red Blood Count 3.84L, Hemoglobin 11.4L, Hematocrit 35L, Mean Corpuscular Volume 91, Mean Corpuscular Hemoglobin 30, Mean Corpuscular Hemoglobin Concent 33, Red Cell Distribution Width 14.8H, Platelet Count 153, Mean Platelet Volume 9.9, Immature Granulocyte % (Auto) 1, Neutrophils (%) (Auto) 89H, Lymphocytes (%) (Auto) 6L, Monocytes (%) (Auto) 5, Eosinophils (%) (Auto) 0, Basophils (%) (Auto) 0, Neutrophils # (Auto) 19.7H, Lymphocytes # (Auto) 1.2, Monocytes # (Auto) 1.2H, Eosinophils # (Auto) 0.0, Basophils # (Auto) 0.0, Immature Granulocyte # (Auto) 0.1, Sodium Level 144, Chloride Level 111H, Carbon Dioxide Level 16L, Anion Gap 17H, Blood Urea Nitrogen 33H, Creatinine 1.55H, Estimat Glomerular Filtration Rate 43, BUN/Creatinine Ratio 21, Glucose Level 153H, Calcium Level 7.9L, Phosphorus Level 3.7, Magnesium Level 4.0H 11/25/20 00:00: Sodium Level 144, Potassium Level 3.7, Chloride Level 112H, Carbon Dioxide Level 15L, Anion Gap 17H, Blood Urea Nitrogen 34H, Creatinine 1.57H, Estimat Glomerular Filtration Rate 43, BUN/Creatinine Ratio 22, Glucose Level 156H, Calcium Level 8.0L, Corrected Calcium 8.9, Total Bilirubin 0.6, Aspartate Amino Transf (AST/SGOT) 116H, Alanine Aminotransferase (ALT/SGPT) 82H, Alkaline Phosphatase 87, Total Protein 5.5L, Albumin 2.9L 11/25/20 00:07: Glucometer 148H 11/25/20 01:15: Glucometer 145H 11/25/20 01:59: Glucometer 139H 11/25/20 02:23: Sodium Level 143, Potassium Level 3.5L, Chloride Level 112H, Carbon Dioxide Level 16L, Anion Gap 15H, Blood Urea Nitrogen 34H, Creatinine 1.46H, Estimat Glomerular Filtration Rate 46, BUN/Creatinine Ratio 23, Glucose Level 138H, Lactic Acid Level 3.23*H, Calcium Level 7.9L, Phosphorus Level 3.7, Magnesium Level 3.8H 11/25/20 03:00: Glucometer 132H 11/25/20 04:04: Glucometer 136H 11/25/20 04:55: Potassium Level 3.6, Lactic Acid Level 2.74*H 11/25/20 04:56: Glucometer 139H 11/25/20 05:57: Glucometer 139H 11/25/20 06:00: White Blood Count 18.0H, Red Blood Count 3.67L, Hemoglobin 11.1L, Hematocrit 33L , Mean Corpuscular Volume 89, Mean Corpuscular Hemoglobin 30, Mean Corpuscular Hemoglobin Concent 34, Red Cell Distribution Width 14.6H, Platelet Count 137, Mean Platelet Volume 10.3, Immature Granulocyte % (Auto) 1, Neutrophils (%) (Auto) 84H, Lymphocytes (%) (Auto) 9L, Monocytes (%) (Auto) 6, Eosinophils (%) (Auto) 0, Basophils (%) (Auto) 0, Neutrophils # (Auto) 15.1H, Lymphocytes # (Auto) 1.6, Monocytes # (Auto) 1.1H, Eosinophils # (Auto) 0.1, Basophils # (Auto) 0.0, Immature Granulocyte # (Auto) 0.1, Prothrombin Time 18.3H, INR Comment 1.5H, Activated Partial Thromboplast Time 48H, Blood Gas Puncture Site LEFT RAD, Blood Gas Patient Temperature 33.2, Arterial Blood pH 7.51H, Arterial Blood Partial Pressure CO2 22L, Arterial Blood Partial Pressure O2 134H, Arterial Blood HCO3 18L, Arterial Blood Total CO2 19.1L, Arterial Blood Oxygen Saturation 98, Arterial Blood Base Excess -4.9L, Gianluca Test ART LINE, Blood Gas Ventilator Setting YES, Blood Gas Inspired Oxygen 35%, Sodium Level 142, Potassium Level 3.6, Chloride Level 111H, Carbon Dioxide Level 17L, Anion Gap 14, Blood Urea Nitrogen 34H, Creatinine 1.53H, Estimat Glomerular Filtration Rate 44, BUN/Creatinine Ratio 22, Glucose Level 137H, Calcium Level 7.7L, Corrected Calcium 8.7, Phosphorus Level 3.7, Magnesium Level 5.2#*H, Total B ilirubin 0.6, Aspartate Amino Transf (AST/SGOT) 93H, Alanine Aminotransferase (ALT/SGPT) 70H, Alkaline Phosphatase 79, Total Protein 5.3L, Albumin 2.8L 11/25/20 06:50: Lactic Acid Level 2.17*H 11/25/20 06:51: Glucometer 139H 11/25/20 07:52: Glucometer 136H 11/25/20 07:53: Potassium Level 3.6 11/25/20 09:07: Glucometer 130H Microbiology 11/23/20 MRSA Screen - Final, Complete MRSA not isolated Assessment/Plan Assessment/Plan (1) Cardiac arrest Status: Acute Assessment & Plan: 11/24: Myself and Dr Figueroa present for Code Blue, See nursing notes for code timeline, Patient taken to filling station laborer for emergent pacemaker placement, Hypothermia protocol upon return to ICU, Spoke with eICU and agree on plan 11/25: S/P code blue. 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
[2020-11-25] MEDS: NOREPINEPHRINE 8 MG/250 ML 250 ML IV SCH (09:33)
--- NOTE | 2020-11-25 10:16 | Diagnostic Imaging Report ---
INDICATION: POST CODE BLUE. TECHNIQUE: Multiple contiguous axial images were obtained through the brain without the use of intravenous contrast. Auto Exposure Controls were utilized during the CT exam to meet ALARA standards for radiation dose reduction. There is no previous head CT for comparison There are extensive multifocal acute or subacute infarcts, involving the right ELISHA territory, right MCA territory, and right FORENS[employer] MATERIAL[employer] ENGINEER territory as well as the left FORENSIC MATERIALS ENGINEER territory and left cerebellum. Within the right occipital infarct. There is a small 8 mm area of hyperdensity which is probably a small area of hemorrhage. There is no subdural or epidural collection. The ventricles are normal in size. There are chronic ischemic changes throughout the deep white matter. Calvarial windows are unremarkable. IMPRESSION: Extensive acute or subacute infarcts and numerous vascular territories as described above. The multiplicity of vascular territory involves the highly suggested embolic phenomenon. There is a small area of hemorrhage within the right temporal occipital region measuring about 8 mm. There is no midline shift. There are underlying chronic changes in deep white matter. Suggest MRI for further evaluation as clinically warranted. Dictated by: Dictated on workstation # [id number]
[2020-11-25] MEDS: MAGNESIUM SULFATE DRIP 500 ML IV SCH (11:35)
[2020-11-25] MEDS ORDERED: PROMETHAZINE INJ 25 MG/ML (PHENERGAN) AMP IVP PRN (12:00)
[2020-11-25] MEDS ORDERED: ARTIFICAL TEARS 0.4 ML UNIT DOSE (REFRESH PLUS) OU PRN (12:00)
[2020-11-25] MEDS ORDERED: ONDANSETRON 4 MG/2 ML (SDV) Z0FRAN IVP PRN (12:00)
[2020-11-25] MEDS ORDERED: ACETAMINOPHEN 650 MG SUPP (TYLENOL) PR PRN (12:00)
[2020-11-25] MEDS: LACRI-LUBE OPTHALMIC OINT 3.5 GM TUBE OU PRN (12:00)
[2020-11-25] MEDS ORDERED: morphine INJ 4 MG/ML 1 ML (VIAL/SYRINGE) IV PRN (12:00)
[2020-11-25] MEDS ORDERED: RT-ALBUTEROL/IPRATROPIUM 3 ML (DUONEB) VIAL INH PRN (12:00)
[2020-11-25] MEDS ORDERED: LORazepam INJ 2 MG/ML (ATIVAN) VIAL IVP PRN ×2 (12:00→16:15)
[2020-11-25] MEDS ORDERED: SALIVA STIMULANT MOUTH SPRAY (BIOTENE) 1.5 OZ MM PRN (12:00)
[2020-11-25] MEDS ORDERED: GLYCOPYRROLATE 0.2 MG/ML (ROBINUL) 2 ML VIAL IV PRN (12:00)
[2020-11-25] MEDS ORDERED: BISACODYL 10 MG SUPP (DULCOLAX) PR PRN (12:00)
--- NOTE | 2020-11-25 12:11 | Progress Note ---
Subjective Subjective/Events-last exam Patient intubated and sedated. CT reviewed with eICU Patient's Nephew and son at bedside to discuss plan of care. Review of Systems Patient intubated and sedated Focused Exam Lactate Level 11/25/20 02:23: Lactic Acid Level 3.23*H 11/25/20 04:55: Lactic Acid Level 2.74*H 11/25/20 06:50: Lactic Acid Level 2.17*H Objective Exam Last Set of Vital Signs Vital Signs Date Time Temp Pulse Resp B/P (MAP) Pulse Ox O2 Delivery O2 Flow Rate FiO2 11/25/20 11:00 32.9 11/25/20 11:00 60 12 88/50 (63) 98 Mechanical Ventilator 35.00 11/25/20 09:14 35 Capillary Refill : Less Than 3 Seconds I&O Intake and Output 11/24/20 23:59 Intake Total 1300 ml Output Total 2005 ml Balance -705 ml Intake Oral 125 ml IV Total 1100 ml Tube Feeding 0 ml Other 75 ml Output Urine Total 1930 ml Oral Regurgitation 75 ml General: Other (Intubated and sedated) Lungs: Other (diminished breath sounds with wheezing, breathing with vent) Heart: Regular Rate, No Murmurs Abdomen: Soft Neuro: Other (Pupils fixed, no pupillary response, no gag, not withdrawing from pain) Results/Procedures Lab Laboratory Tests 11/24/20 12:21: Blood Gas Puncture Site RGHT RAD, Blood Gas Patient Temperature 37.6, Arterial Blood pH 7.21*L, Arterial Blood Partial Pressure CO2 38, Arterial Blood Partial Pressure O2 108H, Arterial Blood HCO3 15*L, Arterial Blood Total CO2 15.6L, Arterial Blood Oxygen Saturation 96, Arterial Blood Base Excess -11.8L, Gianluca Test POS, Blood Gas Ventilator Setting YES, Blood Gas Inspired Oxygen 100% 11/24/20 12:34: Glucometer 201H 11/24/20 12:47: Lactic Acid Level 8.36*H 11/24/20 12:48: White Blood Count 25.3H, Red Blood Count 4.10L, Hemoglobin 12.4L, Hematocrit 38L , Mean Corpuscular Volume 93, Mean Corpuscular Hemoglobin 30, Mean Corpuscular Hemoglobin Concent 33, Red Cell Distribution Width 14.9H, Platelet Count 231, Mean Platelet Volume 10.0, Immature Granulocyte % (Auto) 1, Neutrophils (%) (Auto) 86H, Lymphocytes (%) (Auto) 5L, Monocytes (%) (Auto) 7, Eosinophils (%) (Auto) 0, Basophils (%) (Auto) 0, Neutrophils # (Auto) 21.8H, Lymphocytes # (Auto) 1.3, Monocytes # (Auto) 1.8H, Eosinophils # (Auto) 0.0, Basophils # (A uto) 0.1, Immature Granulocyte # (Auto) 0.4H, Neutrophils % (Manual) 93, Lymphocytes % (Manual) 4, Monocytes % (Manual) 3, Eosinophils % (Manual) 0, Basophils % (Manual) 0, Band Neutrophils 0, Percent Immature Platelet Fraction 3.5, Blood Morphology Comment NORMAL, Prothrombin Time 19.4H, INR Comment 1.6H, Activated Partial Thromboplast Time 36H, Fibrinogen 246, D-Dimer > 20.00*H, Sodium Level 144, Potassium Level 4.7, Chloride Level 110H, Carbon Dioxide Level 14L, Anion Gap 20H, Blood Urea Nitrogen 29H, Creatinine 1.60H, Estimat Glomerular Filtration Rate 42, BUN/Creatinine Ratio 18, Glucose Level 200H, Calcium Level 7.7L, Corrected Calcium 8.3L, Phosphorus Level 6.6H, Magnesium Level 2.4, Total Bilirubin 0.7, Direct Bilirubin 0.4H, Indirect Bilirubin 0.3, Aspartate Amino Transf (AST/SGOT) 118H, Alanine Aminotransferase (ALT/SGPT) 108H , Alkaline Phosphatase 114, Total Creatine Kinase 518H, Troponin I 0.867*H, Total Protein 6.1L, Albumin 3.2, Triglycerides Level 143, Amylase Level 52, Lipase 30 11/24/20 13:24: Glucometer 169H 11/24/20 14:29: Glucometer 158H 11/24/20 14:50: Potassium Level 3.8, Lactic Acid Level 8.01*H 11/24/20 15:45: Blood Gas Puncture Site RGHT RAD, Blood Gas Patient Temperature 33.9, Arterial Blood pH 7.25*L, Arterial Blood Partial Pressure CO2 36, Arterial Blood Partial Pressure O2 78L, Arterial Blood HCO3 16*L, Arterial Blood Total CO2 17.2L, Arterial Blood Oxygen Saturation 95, Arterial Blood Base Excess -10.5L, Gianluca Test POS, Blood Gas Ventilator Setting NO, Blood Gas Inspired Oxygen NA 7/5/21 16:02: Glucometer 174H 11/24/20 17:09: Glucometer 176H 11/24/20 18:00: White Blood Count 27.6H, Red Blood Count 3.79L, Hemoglobin 11.3L, Hematocrit 35L , Mean Corpuscular Volume 93, Mean Corpuscular Hemoglobin 30, Mean Corpuscular Hemoglobin Concent 32, Red Cell Distribution Width 14.9H, Platelet Count 161, Mean Platelet Volume 9.7, Immature Granulocyte % (Auto) 1, Neutrophils (%) (Auto) 92H, Lymphocytes (%) (Auto) 2L, Monocytes (%) (Auto) 5, Eosinophils (%) (Auto) 0, Basophils (%) (Auto) 0, Neutrophils # (Auto) 25.4H, Lymphocytes # (Auto) 0.7L, Monocytes # (Auto) 1.2H, Eosinophils # (Auto) 0.0, Basophils # (Auto) 0.0, Immature Granulocyte # (Auto) 0.2H, Prothrombin Time 20.3H, INR Comment 1.7H, Activated Partial Thromboplast Time 40H, Sodium Level 144, Potassium Level 4.0, Chloride Level 109H, Carbon Dioxide Level 16L, Anion Gap 19H, Blood Urea Nitrogen 32H, Creatinine 1.68H, Estimat Glomerular Filtration Rate 40, BUN/Creatinine Ratio 19, Glucose Level 206H, Calcium Level 8.2L, Phosphorus Level 5.4H, Magnesium Level 4.9#*H 11/24/20 18:05: Glucometer 172H 11/24/20 19:42: Glucometer 180H 11/24/20 20:06: Glucometer 180H 11/24/20 20:12: Potassium Level 3.7, Lactic Acid Level 2.76*H 11/24/20 21:01: Glucometer 173H 11/24/20 22:11: Glucometer 169H 11/24/20 22:12: Potassium Level 3.6, Lactic Acid Level 4.71*H 11/24/20 22:59: Glucometer 170H 11/24/20 23:59: Potassium Level 3.6, Lactic Acid Level 4.02*H, White Blood Count 22.3H, Red Blood Count 3.84L, Hemoglobin 11.4L, Hematocrit 35L, Mean Corpuscular Volume 91, Mean Corpuscular Hemoglobin 30, Mean Corpuscular Hemoglobin Concent 33, Red Cell Distribution Width 14.8H, Platelet Count 153, Mean Platelet Volume 9.9, Immature Granulocyte % (Auto) 1, Neutrophils (%) (Auto) 89H, Lymphocytes (%) (Auto) 6L, Monocytes (%) (Auto) 5, Eosinophils (%) (Auto) 0, Basophils (%) (Auto) 0, Neutrophils # (Auto) 19.7H, Lymphocytes # (Auto) 1.2, Monocytes # (Auto) 1.2H, Eosinophils # (Auto) 0.0, Basophils # (Auto) 0.0, Immature Granulocyte # (Auto) 0.1, Sodium Level 144, Chloride Level 111H, Carbon Dioxide Level 16L, Anion Gap 17H, Blood Urea Nitrogen 33H, Creatinine 1.55H, Estimat Glomerular Filtration Rate 43, BUN/Creatinine Ratio 21, Glucose Level 153H, Calcium Level 7.9L, Phosphorus Level 3.7, Magnesium Level 4.0H 11/25/20 00:00: Sodium Level 144, Potassium Level 3.7, Chloride Level 112H, Carbon Dioxide Level 15L, Anion Gap 17H, Blood Urea Nitrogen 34H, Creatinine 1.57H, Estimat Glomerular Filtration Rate 43, BUN/Creatinine Ratio 22, Glucose Level 156H, Calcium Level 8.0L, Corrected Calcium 8.9, Total Bilirubin 0.6, Aspartate Amino Transf (AST/SGOT) 116H, Alanine Aminotransferase (ALT/SGPT) 82H, Alkaline Phosphatase 87, Total Protein 5.5L, Albumin 2.9L 11/25/20 00:07: Glucometer 148H 11/25/20 01:15: Glucometer 145H 11/25/20 01:59: Glucometer 139H 11/25/20 02:23: Sodium Level 143, Potassium Level 3.5L, Chloride Level 112H, Carbon Dioxide Level 16L, Anion Gap 15H, Blood Urea Nitrogen 34H, Creatinine 1.46H, Estimat Glomerular Filtration Rate 46, BUN/Creatinine Ratio 23, Glucose Level 138H, Lactic Acid Level 3.23*H, Calcium Level 7.9L, Phosphorus Level 3.7, Magnesium Level 3.8H 11/25/20 03:00: Glucometer 132H 11/25/20 04:04: Glucometer 136H 11/25/20 04:55: Potassium Level 3.6, Lactic Acid Level 2.74*H 11/25/20 04:56: Glucometer 139H 11/25/20 05:57: Glucometer 139H 11/25/20 06:00: White Blood Count 18.0H, Red Blood Count 3.67L, Hemoglobin 11.1L, Hematocrit 33L , Mean Corpuscular Volume 89, Mean Corpuscular Hemoglobin 30, Mean Corpuscular Hemoglobin Concent 34, Red Cell Distribution Width 14.6H, Platelet Count 137, Mean Platelet Volume 10.3, Immature Granulocyte % (Auto) 1, Neutrophils (%) (Auto) 84H, Lymphocytes (%) (Auto) 9L, Monocytes (%) (Auto) 6, Eosinophils (%) (Auto) 0, Basophils (%) (Auto) 0, Neutrophils # (Auto) 15.1H, Lymphocytes # (Auto) 1.6, Monocytes # (Auto) 1.1H, Eosinophils # (Auto) 0.1, Basophils # (Auto) 0.0, Immature Granulocyte # (Auto) 0.1, Prothrombin Time 18.3H, INR Comment 1.5H, Activated Partial Thromboplast Time 48H, Blood Gas Puncture Site LEFT RAD, Blood Gas Patient Temperature 33.2, Arterial Blood pH 7.51H, Arterial Blood Partial Pressure CO2 22L, Arterial Blood Partial Pressure O2 134H, Arterial Blood HCO3 18L, Arterial Blood Total CO2 19.1L, Arterial Blood Oxygen Saturation 98, Arterial Blood Base Excess -4.9L, Gianluca Test ART LINE, Blood Gas Ventilator Setting YES, Blood Gas Inspired Oxygen 35%, Sodium Level 142, Potassium Level 3.6, Chloride Level 111H, Carbon Dioxide Level 17L, Anion Gap 14, Blood Urea Nitrogen 34H, Creatinine 1.53H, Estimat Glomerular Filtration Rate 44, BUN/Creatinine Ratio 22, Glucose Level 137H, Calcium Level 7.7L, Corrected Calcium 8.7, Phosphorus Level 3.7, Magnesium Level 5.2#*H, Total Bilirubin 0.6, Aspartate Amino Transf (AST/SGOT) 93H, Alanine Aminotransferase (ALT/SGPT) 70H, Alkaline Phosphatase 79, Total Protein 5.3L, Albumin 2.8L 11/25/20 06:50: Lactic Acid Level 2.17*H 11/25/20 06:51: Glucometer 139H 11/25/20 07:52: Glucometer 136H 11/25/20 07:53: Potassium Level 3.6 11/25/20 09:07: Glucometer 130H 11/25/20 10:10: Potassium Level 3.6 11/25/20 10:13: Glucometer 133H Microbiology 11/23/20 MRSA Screen - Final, Complete MRSA not isolated Assessment/Plan Assessment/Plan (1) Anoxic encephalopathy Status: Acute Assessment & Plan: 11/25: Reviewed CT head with eICU, patient has 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 Family at this time would like to proceed with comfort care measures. Palliative care consult placed. 30 mins critical care time spent in patient's room with family. (2) Cardiac arrest Status: Acute Assessment & Plan: 11/24: Myself and Dr Figueroa present for Code Blue, See nursing notes for code timeline, Patient taken to laboratory engineer for emergent pacemaker placement, Hypothermia protocol upon return to ICU, Spoke with eICU and agree on plan 11/25: S/P code blue. 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
[2020-11-25 14:51] VITALS: BP 117/57
[2020-11-25] MEDS ORDERED: morphine INJ 4 MG/ML 1 ML (VIAL/SYRINGE) IVP PRN (16:15)
== END 2020-11-25 18:08 | disposition expired | DRG 242 ==
LOC: EDUNIT# 12:24 → ER FS 12:26 → ICU 12:40
PROVIDERS: ADMIT Internal Medicine; ATTEND Family Medicine
PROC: 0JH606Z Insertion of Pacemaker, Dual Chamber into Chest Subcutaneous Tissue and Fascia, Open Approach (ICD-10-PCS; principal; 2020-11-24)
PROC: 02H63JZ Insertion of Pacemaker Lead into Right Atrium, Percutaneous Approach (ICD-10-PCS; 2020-11-24)
PROC: 02HK3JZ Insertion of Pacemaker Lead into Right Ventricle, Percutaneous Approach (ICD-10-PCS; 2020-11-24)
PROC: 02HV33Z Insertion of Infusion Device into Superior Vena Cava, Percutaneous Approach (ICD-10-PCS; 2020-11-24)
PROC: 4A133BC Monitoring of Arterial Pressure, Coronary, Percutaneous Approach (ICD-10-PCS; 2020-11-24)
PROC: 05H633Z Insertion of Infusion Device into Left Subclavian Vein, Percutaneous Approach (ICD-10-PCS; 2020-11-24)
PROC: 5A1945Z Respiratory Ventilation, 24-96 Consecutive Hours (ICD-10-PCS; 2020-11-24)
PROC: 0BH17EZ Insertion of Endotracheal Airway into Trachea, Via Natural or Artificial Opening (ICD-10-PCS; 2020-11-24)
DX: I44.2 Atrioventricular block, complete (principal); J96.01 Acute respiratory failure with hypoxia; K72.00 Acute and subacute hepatic failure without coma; E87.2 Acidosis; G93.1 Anoxic brain damage, not elsewhere classified; G40.89 Other seizures; Z66 Do not resuscitate; Z51.5 Encounter for palliative care; N17.9 Acute kidney failure, unspecified; F17.210 Nicotine dependence, cigarettes, uncomplicated; F41.9 Anxiety disorder, unspecified; I10 Essential (primary) hypertension; E78.5 Hyperlipidemia, unspecified; I87.2 Venous insufficiency (chronic) (peripheral); I25.10 Atherosclerotic heart disease of native coronary artery without angina pectoris; I49.01 Ventricular fibrillation; R57.8 Other shock; I46.9 Cardiac arrest, cause unspecified; I95.9 Hypotension, unspecified; Z79.82 Long term (current) use of aspirin; Z79.899 Other long term (current) drug therapy; I25.2 Old myocardial infarction; Z95.5 Presence of coronary angioplasty implant and graft
CPT/HCPCS: 33208; 36415; 70450; 71045; 80048; 80053; 80061; 80076; 82150; 82330; 82550; 82805; 82947; 83605; 83690; 83735; 84100; 84132; 84443; 84478; 84484; 85007; 85025; 85027; 85379; 85384; 85610; 85730; 86850; 86900; 86901; 87081; 93005; 93041; 93306; 94002; 94799